=== PATIENT | male | born 1945 | race Caucasian/White ===

== ENCOUNTER 2025-02-15 13:28 | Inpatient (IN) | payer OTHER, SELFPAY ==
[2025-02-09 22:49] VITALS: BMI 22.0
[2025-02-09 22:50] VITALS: BP 184/109
[2025-02-09 22:54] LABS: Glucose - Point of Care 131 mg/dl (70-99)
[2025-02-09 23:00] VITALS: BP 179/108
--- NOTE | 2025-02-09 23:21 | ED.CVA ---
History of Present Illness
General
Chief Complaint: CVA/TIA Symptoms
Source: patient
Exam Limitations: altered mental status
Time Seen by Provider: 02/09/25 23:15
Nursing documentation reviewed up to this point in time: agreed with
Onset of Stroke Symptoms
Onset of symptoms known: Yes
Date of onset of symptoms: 02/09/25
Time of onset of symptoms: 22:30
Time pt last seen normal is known: Yes
Date last time pt seen normal: 02/09/25
History of Present Illness
History of Present Illness:
80-year-old male AF, on Coumadin was going to bed trouble speaking right-sided weakness EMS was called, symptoms improved, here he is a bit slow to respond slightly confused seems to be moving all extremities, no headache no fever, knows he is at
the hospital
Past History
Past History
ED Past Medical History: Arrthythmia
Social History
Tobacco: Non-smoker
Alcohol: None
Drug: None
Personal:
Living: with family
Employment: Retired
Review of Systems
Review of Systems
All Other Systems: Not applicable
Constitutional: Denies fever or fatigue
EENT: Reports no symptoms
Respiratory: Reports no symptoms
Cardiac: Reports no symptoms
Neurological: Reports weakness
Phy Exam
Physical Exam
Physical Exam:
Physical Exam
General: no apparent distress, not acutely ill
Neck: No tongue bite
Heart: Airway
Lungs: no acute respiratory distress. clear bilaterally
Abdomen: normal bowel sounds. not tender. no CVAT
Neuro: See NIH
Skin: no rash
Psychiatric: well kept. interactive and cooperative
Extremities: no ute
Scores
NIH Stroke Score
Level of Consciousness: 0 - Alert
LOC Questions: 0-Answers both correctly
LOC Commands: 0-Performs both correctly
Best Horizontal Gaze: 0-Normal
Visual Fritz: 0=Normal, no visual loss
Facial Palsy: 0=Normal, symmetrical
Motor - Right Arm: 0=No drift 10 seconds
Motor - Left Arm: 0=No drift 10 seconds
Motor - Right Le-No drift 5 seconds
Motor - Left Le-No drift 5 seconds
Limb Ataxia: 0-Absent
Sensation: 0-Normal
Best Language: 0-No aphasia
Dysarthria: 0-Normal
Extinction and Inattention: 1-Sensory inattention
NIH Total Score:: 1
Course
Orders/Labs/Results
Orders:
Orders
02/09/25 23:00
ECG [Electrocardiogram (*1)] Urgent
Reason for Study: TIA/Stroke
Cardiology Consult: Unknown
EKG- Treatment ONCE
02/09/25 23:19
Electrocardiogram (*1) Stat
Reason for Study: Other
Other Reason for Exam: neuro symptoms
Bedside Glucose- Treatment ONCE
Cardiac Monitoring- Treatment ONCE
EKG- Treatment ONCE
IV Insert/Care/Rem.- Treatment PRN
02/09/25 23:24
Complete Blood Count/With Diff Urgent
Comprehensive Metabolic Panel Urgent
Prothrombin Time Urgent
02/10/25 00:11
CT Head W/o Iv Contrast Urgent
Comment:
Reason For Exam: Slurred speech
02/10/25 01:22
Diltiazem HCl [Cardizem] 10 mg IV NOW STA
02/10/25 01:30
Diltiazem 125 mg/125 ml Nss [Cardizem] 125 mg in 125 ml IV PER PROTOCOL
Initial dose in mg/hr, then titrate:: 5
Titrate to keep:: Heart rate 80-100 bpm
Titrate by mg/hr:: 5 mg/hr
Frequency of titrations (minutes):: 15
Maximum dose in mg/hr:: 15
02/10/25 02:40
Admit/Transfer Patient As Directed
Co-Sign Provider:
Level of Care: Observation services
Assign to:: Telemetry
Physician / Group: Cholo
Diagnosis: TIA
Reason for Telemetry: CVA/TIA
Date to Stop Telemetry: 02/13/25
Time to Stop Telemetry: 11:00
Lactated Ringers [Lr] 1,000 ml IV BOLUS
02/10/25 02:41
PRN Pain Medication Management As Directed
May give lesser potent ordered pain med per pt: Yes
preference::
Protocol:: Medication orders for pain may be administered in a
manner that supports deferring to patient preference
when the pt is:
- Requesting an ordered lesser potent pain medication.
Least to most potent pain medications are defined
as: acetaminophen < NSAID < tramadol < opioids
(morphine, oxycodone, hydromorphone).
- Requesting a lesser dose of the same medication IF
ORDERED.
- Requesting a less intrusive route of administration
if both routes are prescribed by the provider (PO <
IV).
02/10/25 02:42
Code Status As Directed
Resuscitation Status: Full Code
02/13/25 11:00
DC Protocol for Telemetry ONCE
Abnormal Lab Results
02/09/25 02/09/25
22:51 23:24
RDW 14.8 H %
(11.5-14.5)
Abs Immat Gran (auto) 0.2 H 10^3/uL
(0-0.05)
Absolute Monos (auto) 0.9 H 10^3/uL
(0.1-0.6)
Immature Gran % 1.8 H %
(0-0.5)
Monocytes % 10.1 H %
(1.7-9.3)
PT 21.8 H Sec
(11.4-14.6)
Carbon Dioxide 20 L mmol/L
(22-30)
BUN 63 H mg/dl
(9-20)
Creatinine 2.9 H mg/dL
(0.7-1.3)
Glucose 145 H mg/dl
(70-99)
POC Glucose 131 H mg/dl
(70-99)
02/09/25 23:24
02/09/25 23:24
Vital Signs
Initial and Last Documented VS:
Initial Vital Signs
Pulse Resp BP Pulse Ox
93 18 184/109 99
02/09/25 22:50 02/09/25 22:50 02/09/25 22:50 02/09/25 22:50
Last Documented Vital Signs
Pulse Resp BP Pulse Ox
67 17 130/88 99
02/10/25 03:00 02/10/25 03:00 02/10/25 03:00 02/09/25 23:24
MDM/Problems Addressed
Differential Diagnosis Includes:
TIA CVA seizure with Case's paralysis UTI toxic metabolic
MDM/Problems Addressed:
Slurred speech and weakness which is improved
Chronic conditions affecting care: Arrhythmia
Acute Exacerbation and/or Progression of Chronic Illness: Arrhythmia
*Pulse Oximetry
SaO2: 99
Oxygen Mode of Delivery: Room air
Patient hypoxic: no
*Critical Care Note
Total Time (30-74mins, 75-104mins- exclusive of procedures): Not Applicable
Update Note
Update Note:
1:15 AM update patient appears well speech is clear muscle strength is intact discussed with son and at bedside he tried getting his words out earlier and weakness of the right side all of which is improved apparently having issues getting his
INR checked due to some insurance issues with [facility] and [facility]
Heart rate is in rapid A-fib now is hypertensive now we will start on Cardizem we will admit
ED Attending Note
-
Portions of this chart may have been created with voice recognition software.� Occasional wrong word or��sound alike� substitutions may have occurred due to the inherent limitations of voice recognition software.
Discharge Plan
Departure
Patient Disposition: Admit
Date of Disposition: 02/10/25
Time of Disposition: 01:23
Admit to: Telemetry
Presentation/result/management discussed w/ accepting MD/DO: Hospitalist
Patient with high blood pressure during this ER visit?: Yes
Covid-19: Not Applicable
Discharge Problem:
Brain TIA, Hypertensive urgency, Atrial fibrillation
Interventions
Interventions:
*Risk Screen - Suicide Last Done: 02/09/25 22:50
*General Assessment Last Done: 02/09/25 22:50
*Neglect/Abuse Screening Last Done: 02/09/25 22:50
*ED- Fall Risk Assessment Last Done: 02/09/25 22:50
*ED COVID-19 Vaccine History Last Done: 02/09/25 22:50
ED- Pulmonary Assessment Last Done: 02/09/25 23:13
ED- Neurological Assessment Last Done: 02/09/25 23:13
ED- Cardiac Assessment Last Done: 02/09/25 23:13
ED Swallowing Screen Last Done: 02/09/25 23:17
[2025-02-09 23:34] LABS: Hematocrit 39.8 % (39.0-52.0); Hemoglobin 13.2 g/dL (13.0-18.0); Mean Corp Hgb Conc. 33.2 g/dL (33.0-37.0); Mean Corpuscular Volume 82.4 fL (80.0-94.0); Nucleated Red Blood Cells % 0 % (-); Platelet Count 228 10^3/uL (130-400); Red Cell Dist. Width 14.8 % (11.5-14.5)
[2025-02-09 23:44] LABS: INR 1.84; PT 21.8 Sec (11.4-14.6)
[2025-02-10] VITALS (24 sets, daily range): BP systolic 88–180; BP diastolic 62–121; PULSE 110–115; BMI 21.5; BMI 20.6
[2025-02-10] LABS: ALT (SGPT) 23 U/L (0-50); AST (SGOT) 27 U/L (17-59); Albumin 4.4 g/dl (3.5-5.0); Alkaline Phosphatase 66 U/L (38-126); Blood Urea Nitrogen 63 mg/dl (9-20); Calcium 9.4 mg/dl (8.4-10.2); Carbon Dioxide 20 mmol/L (22-30); Chloride 106 mmol/L (98-107); Estimated Creatinine Clearance 20 ml/min; Glucose 145 mg/dl (70-99); Potassium 3.9 mmol/L (3.5-5.1); Sodium 137 mmol/L (135-145); Total Protein 7.2 g/dl (6.3-8.2); eGFR 20.94
[2025-02-10] MEDS: CARDIZEM 10 MG IV (01:42)
[2025-02-10] MEDS: CARDIZEM 125 IV (01:43)
--- NOTE | 2025-02-10 02:31 | HPS.HSE ---
Family Physician
-
Family Physician: Elias Mcmahon
Chief Complaint
-
TIA
History of Present Illness
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
symptoms today.
Apparently at around 8 PM the patient was getting up to go to bed. noticed that he had a facial droop. She also noticed that he had bilateral weakness of his upper extremities. He was unable to voice. He had aphasia with repeated
statements. Per family this lasted for about 30 minutes and by the time he arrived in the emergency department his symptoms had completely resolved.
He reported that he had been feeling unwell for a few days now. He has had some episodes of dizziness and lightheadedness. But he has not had any fevers or chills. He has not had any cough. He denies having palpitation. He denies any chest pain
nausea vomiting or diaphoresis. He denies any lower extremity swelling.
There was some concern for worsening kidney function and dehydration show is Jardiance was discontinued. He is currently in the middle of see new PMD and junior technical writer at [facility]. He reports compliance with his medications.
In the emergency department he was afebrile, blood pressure was initially 170/100 with a pulse in the 80s. They later noted that he was actually tachycardic to the 120s and atrial fibrillation. He is now on Coreg. Pulse rate ranging from the 80s
to the 110s.
ECG shows atrial fibrillation at a rate of 94 without any acute ischemic changes.
CBC was unremarkable
Electrolytes were normal. BUN and creatinine were 63 and 2.9. INR was 1.8
Medical History
Past Medical History
Past Medical History: Reports Arrhythmia, Cancer (History of renal tumor status post left nephrectomy), HTN, NIDDM and Renal Failure (Solitary kidney)
Past Surgical History: Reports Other (Left nephrectomy by laparotomy)
Social History
Tobacco: Non-smoker
Alcohol: Occasional
Drug: None
Personal:
Living: With Family
Employment: Retired
Family History
Family History: Not pertinent
Allergies / Home Medications
Allergies reflects when Allergies were last updated in [employer].
Home Medications with original date entered in Barcoding
Allergy/Medication List:
Allergies
Allergy/AdvReac Type Severity Reaction Status Date / Time
Penicillins Allergy Mild Unknown Verified 02/10/25 00:00
Home Medications
amlodipine 10 mg tablet 10 mg PO DAILY 02/10/25
atenolol 50 mg-chlorthalidone 25 mg tablet 1 tab PO DAILY 02/10/25
empagliflozin 25 mg tablet (Jardiance) 25 mg PO DAILY 02/10/25
enalapril maleate 20 mg PO HS 02/10/25
flecainide 100 mg tablet 100 mg PO BID 02/10/25
metformin 1,000 mg tablet 1,000 mg PO BID 02/10/25
omeprazole 20 mg tablet,delayed release 20 mg PO DAILY 02/10/25
timolol 1 dose BOTH EYES BID 02/10/25
warfarin 5 mg tablet 5 mg PO HS 02/10/25
Review of Systems
-
Constitutional: Reports No Symptoms
EENT: Reports No Symptoms
Respiratory: Reports No Symptoms
Cardiac: Reports No Symptoms
Abdomen/GI: Reports No Symptoms
: Reports No Symptoms
Musculoskeletal: Reports No Symptoms
Skin: Reports No Symptoms
Neurological: Reports Dizzy, Weakness and Other (Facial droop and aphasia)
Endocrine: Reports No Symptoms
Hematologic/Lymphatic: Reports No Symptoms
Psych: Reports No Symptoms
Physical Exam
Vital Signs
Vital Signs
Pulse Resp BP Pulse Ox
76 20 136/95 99
02/10/25 02:08 02/10/25 02:14 02/10/25 02:08 02/09/25 23:24
Physical Exam
General: Well Developed, Well Nourished and No Apparent Distress
HEENT: NormoCephalic, Moist mucous membranes and Atraumatic
Respiratory: Clear
Cardiac: S1/S2 and Irregular Rhythm; No Murmur or Rub
GI: Soft, Non Tender, Non Distended and Normal Bowel Sounds; No Organomegaly
Rectal: Deferred by Provider
Musculoskeletal: No Clubbing, No Cyanosis and No Edema
Skin: No Rash
Neuro: AO x 3, Nonfocal/grossly intact and Other (NIHSS equals 0); No Slurred Speech or Facial Droop
Hematologic/Lymphatic: No Lymphadenopathy
Psych: Calm
Laboratory Results
-
02/09/25 23:24
02/09/25 23:24
Laboratory Results
PT 21.8 Sec (11.4-14.6) H 02/09/25 23:24
INR 1.84 02/09/25 23:24
Total Bilirubin 0.6 mg/dl (0.2-1.3) 02/09/25 23:24
AST 27 U/L (17-59) 02/09/25 23:24
ALT 23 U/L (0-50) 02/09/25 23:24
Alkaline Phosphatase 66 U/L (38-126) 02/09/25 23:24
Data Reviewed
-
CT Scan: Report Reviewed by me
Medical Tests (Nuc Med, Echo, EKG etc): Image Personally Visualized and interpreted
Lab Data: Labs Reviewed by me
Old Records: Reviewed
Impression/Plan
-
IMPRESSION:
This is a 80-year-old with past medical history of's CKD unknown baseline creatinine, diabetes, atrial fibrillation on anticoagulation with warfarin hypertension presenting to the emergency department with episode aphasia, weakness and facial droop
that lasted for about 30 minutes and now resolved (NIHSS equals 0) and found to be in A-fib with RVR in the emergency department. Patient is chronically on anticoagulation for atrial fibrillation. Appears to have had some recent weakness
dehydration for which Jardiance was discontinued. He is currently rate controlled on diltiazem drip. No known history of congestive heart failure. No volume overload.
PLAN:
CVA TIA -possible CVA or TIA in the setting of atrial fibrillation with subtherapeutic anticoagulation
- admit to telemetry
�Neurochecks every 6
�MRI in a.m.
�Continue anticoagulation for now
�If MRI is positive then consult neuro
- echo
�Check lipid panel and A1c
A-fib RVR
�Patient takes warfarin 5 mg daily, repeat INR in a.m., adjust to goal INR greater than 2
�Continue flecainide and atenolol
�Maintain current rate of diltiazem, DC if rate persistently below 100
�IV fluids
- cardiology consult.
CKD -creatinine 2.9,
�Obtain records for recent creatinine
�Hold chlorthalidone, ACEI
�IV fluids
�Hold metformin
DM2
�Hold Jardiance
� Hold metformin
� Check A1c
� Sliding scale insulin
DVT prophylaxis�on warfarin
CODE STATUS�full code
[2025-02-10] MEDS: LR 1000 IV ×2 (03:17→06:25)
--- NOTE | 2025-02-10 05:26 | PTCARENOTE ---
Received pt from ED via stretcher into room 4211. Pt ambulated w/ standby assist and denies any dizziness. Gait unsteady and generalized weakness. Tele monitor applied, pt Afib. IV Cardizem gtt currently infusing at 10mg/hr. Neuro WNL and [facility]. NIH
performed along w/ a 2nd RN Hattie w/ a result of zero. Patient denies any pain or discomfort. Aware of POC. Call beaver within reach, fall risk precautions maintained. Pt oriented to room.
[2025-02-10 05:42] LABS: INR 1.96; PT 22.8 Sec (11.4-14.6)
[2025-02-10 05:43] LABS: APTT 35.0 Sec (23.4-35.0)
[2025-02-10 05:45] LABS: Blood Urea Nitrogen 55 mg/dl (9-20); Calcium 9.5 mg/dl (8.4-10.2); Carbon Dioxide 21 mmol/L (22-30); Chloride 107 mmol/L (98-107); Estimated Creatinine Clearance 22 ml/min; Glucose 120 mg/dl (70-99); HDL Cholesterol 34 mg/dl; LDL Cholesterol, Calculated 28 mg/dl; Potassium 4.3 mmol/L (3.5-5.1); Sodium 138 mmol/L (135-145); Very Low Density Lipoprotein 24 mg/dl (0-30); eGFR 23.87
[2025-02-10 06:18] LABS: Urine Character Clear (Clear)
[2025-02-10 06:39] LABS: Urine Red Blood Cell 0-2 /HPF (0-2); Urine Squamous Cell None seen /LPF (Few); Urine White Cell None Seen /HPF (0-5)
[2025-02-10] MEDS: TAMBOCOR 100 MG PO (07:58)
[2025-02-10] MEDS: NORVASC 10 MG PO (07:58)
[2025-02-10] MEDS: PROTONIX 40 MG PO (07:58)
[2025-02-10] MEDS: TIMOPTIC 0.5% OPHTHALMIC SOLUTION 1 DROP BOTH EYES ×2 (07:59→20:00)
[2025-02-10] MEDS: COUMADIN 7.5 MG PO (07:59)
[2025-02-10 08:05] LABS: Glucose - Point of Care 131 mg/dl (70-99)
[2025-02-10 08:50] LABS: Glycohemoglobin (HgbA1c) 6.0 % (4.0-5.6)
--- NOTE | 2025-02-10 09:40 | PTCARENOTE ---
Pt w/ positive orthos. BP 88/62 pulse 115 when standing; BP 121/86 pulse 115 when sitting; BP 135/89 pulse 110 when supine. Pt reports feeling slightly dizzy when standing. Dr. Gandhi and Dr. Germain made aware. Pt w/ NIH 0. Plan of care reviewed w/
pt and verbalizes understanding. Currently in bed; call beaver w/in reach.
--- NOTE | 2025-02-10 09:54 | W.PN.HOSP.TC ---
Addendum entered and electronically signed by Teressa Germain MD 02/10/25 10:55:
called back to provide last SCr level from 12/2024 which was at 2.25.
SCr from Aug 2024 was at 1.81 per
Addendum entered and electronically signed by Treessa Germain MD 02/10/25 10:37:
d/w Card, stop further Cardizem drip.
Would consider starting Toprol in place of his [employer] Atenolol.
Can check carotid US in setting of resolved apahsia
?Coumadin to [facility] by card
Original Note:
Today's Communication/Plan
-
see A/P
Assessment / Plan
Assessment / Plan
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
weakness and facial droop that lasted for about 30 minutes and now resolved (NIHSS equals 0).
He was found to be in A-fib with RVR in the emergency department. Patient is chronically on anticoagulation with Coumadin for atrial fibrillation.
He appeared to have had some recent weakness from dehydration and Jardiance was discontinued.
He is currently in the middle of see new PMD and client service administrator at [facility]. He reports compliance with his medications.
A/P:
# Resolved neurologic deficit, 2/2 CVA vs TIA in setting of atrial fibrillation with subtherapeutic anticoagulation
Cont monitoring manager
Neurochecks every 6
CT head No acute intracranial abnormalities appreciated.
Check MRI brain
Continue anticoagulation Coumadin for now, daily INR
LDL 28, A1c 6%
Noted positive orthostatic hypotension
PT eval
# Persistent A-fib with RVR on admission
Patient takes warfarin 5 mg daily, cont
check daily INR, goal 2-3
Continue flecainide and atenolol
pt was started with Cardizem drip, cont for now
IV fluids
Check echo
Cardiology consulted.
# CKD, unclear baseline
creatinine on admission at 2.9 -> 2.6
Obtain records for recent creatinine level
Hold chlorthalidone, ACEI
IV fluids
Hold metformin
# NIDDM
Hold Jardiance
Hold metformin
A1c 6%
Sliding scale insulin coverage
DVT prophylaxis�on warfarin
CODE STATUS�full code
updated on the phone
total time spent 51 min
Anticipated Discharge: > 48 hours
Subjective/Interval History
-
Date of Service: February 10, 2025
Objective Data
-
Labs:
Laboratory Results
02/09/25 02/10/25
23:24 05:11
WBC 8.8
Hgb 13.2
Hct 39.8
Plt Count 228
PT 21.8 H 22.8 H
INR 1.84 1.96
APTT 35.0
Sodium 137 138
Potassium 3.9 4.3
Chloride 106 107
Carbon Dioxide 20 L 21 L
BUN 63 H 55 H
Creatinine 2.9 H 2.6 H
Glucose 145 H 120 H
Calcium 9.4 9.5
Total Bilirubin 0.6
AST 27
ALT 23
Alkaline Phosphatase 66
Vital Signs:
Vital Signs
Temp Pulse Resp BP Pulse Ox
36.6 C 96 20 145/97 99
02/10/25 06:59 02/10/25 09:30 02/10/25 06:59 02/10/25 09:30 02/10/25 06:59
I&O
02/09/25 02/10/25 02/11/25
06:59 06:59 06:59
Intake Total 240 / 240 400 / 400
Output Total 700 / 700 350 / 350
Balance -460 / -460 50 / 50
Review of Systems
-
History Source: Patient
All other systems: Reviewed and negative
Neuro: Reports Other (resolved aphasia ); Denies Weakness
Physical Exam
-
General: Well Developed, Well Nourished, No Apparent Distress, Comfortable and Conversant; Negative Respiratory Distress
HEENT: Normocephalic, Atraumatic, Nose Appears Normal and Ears Appear Normal; Negative Oxygen
Respiratory: Clear to Auscultation and Non Labored Respirations; Negative Accessory Resp Muscle Use
Cardiac: S1/S2 and Irregular Rhythm
GI: Soft, Nontender, Nondistended and Normal Bowel Sounds
Skin: Warm and Dry
Neuro: Awake, Alert, Oriented and AO x 3
Psych: Calm and Intact Judgement/Insight
Data Reviewed
-
CT Scan: Report Reviewed by me
Labs: Labs Reviewed by me
--- NOTE | 2025-02-10 10:06 | CON.CAR ---
Addendum entered and electronically signed by Jaylon Gandhi MD 02/10/25 10:43:
CKD/CAT
- Acute on chronic with creatinine 2.9 on admission down to 2.6. Unclear what patient's baseline is.
- Note patient has solitary kidney. Previous left nephrectomy
- Treatment directed by hospitalist
.
A-fib
- Issues as noted.
- Patient was on flecainide prior to admission now with recurrent A-fib and CAT.
- Stop flecainide
Original Note:
Consultation
Consultation Request
Date/Time Consultation Requested: 02/10/2025 8 AM
Date/Time Consultation Performed: 02/06/2025 at 9:30 AM
Requesting Provider: Hospitalist
Performing Provider: Dr. Gandhi
Reason for Consultation: A-fib
Medical History
-
History of Present Illness:
.
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
.
80-year-old male with a history of atrial fibrillation is maintained on anticoagulation with Coumadin. Presented with facial droop, upper extremity weakness and aphasia. Symptoms resolved. Initial INR 1.8.
Patient currently comfortable. Seems as if he is having some issues with his memory this morning as he is trying to recall issues of his history and former providers name unclear if this is baseline. Patient thinks he is having a little more
trouble today than usual. No complaints of weakness. No palpitations or heart racing no chest pain or shortness of breath denies having a history of coronary artery disease.
.
Patient was placed on some IV Cardizem during this hospitalization rates are in the 50s while asleep so Cardizem was discontinued. Currently receiving IV fluid at 80 mL/h
Patient had some low blood pressure readings. For this reason I repeated his blood pressure at the bedside which was 150/94. On the blood pressure history at the bedside he had systolic blood pressure is 88 and 90 I reviewed this with nursing
staff who stated he had orthostatic hypotension and those were standing blood pressures.
Past medical history
Atrial fibrillation
Anticoagulation with Coumadin
Solitary kidney. Left nephrectomy for renal tumor
Hypertension
Diabetes
Head CT 02/06/2025 no acute intracranial abnormalities mild atrophy and mild chronic small vessel change
Past Medical History
Past Medical History: Other (See HPI)
Social History
Tobacco: Non-Smoker
Personal:
Living: With Family
Family History
Family History: Reviewed & Not Pertinent
Allergies / Home Medications
Allergy/AdvReac Type Severity Reaction Status Date / Time
Penicillins Allergy Mild Unknown Verified 02/10/25 00:00
�Medication �Instructions �Recorded �Confirmed �Type
amlodipine 10 mg tablet 10 mg PO DAILY 02/10/25 02/10/25 History
atenolol 50 mg-chlorthalidone 25 1 tab PO DAILY 02/10/25 02/10/25 History
mg tablet
empagliflozin 25 mg tablet 25 mg PO DAILY 02/10/25 02/10/25 History
(Jardiance)
enalapril maleate 20 mg PO HS 02/10/25 02/10/25 History
flecainide 100 mg tablet 100 mg PO BID 02/10/25 02/10/25 History
metformin 1,000 mg tablet 1,000 mg PO BID 02/10/25 02/10/25 History
omeprazole 20 mg tablet,delayed 20 mg PO DAILY 02/10/25 02/10/25 History
release
timolol 1 dose BOTH EYES BID 02/10/25 02/10/25 History
warfarin 5 mg tablet 5 mg PO HS 02/10/25 02/10/25 History
Review of Systems
-
All other systems: Negative unless noted
Physical Exam
Vital Signs
Temp Pulse Resp BP Pulse Ox
97.9 F 96 20 145/97 99
02/10/25 06:59 02/10/25 09:30 02/10/25 06:59 02/10/25 09:30 02/10/25 06:59
Lab Results
02/09/25 23:24
02/10/25 05:11
Lxe-T-Xhsohqinzrx Pept [id number] pg/ml 02/10/25 05:11
Physical Exam
General: Well Developed, Well Nourished and Other (Awake alert cooperative)
HEENT: Normocephalic, Anicteric and Other (Extraocular movements are intact pupils appear equal external ear normal exam unremarkable. Face appears symmetrical)
Respiratory: Other (Clear no wheezes rales or rhonchi)
Cardiac: Regular Rhythm
GI: Soft, Non Tender and Normal Bowel Sounds
Musculoskeletal: No Clubbing, No Cyanosis and No Edema
Neuro: Awake, Alert and Oriented
Psych: Calm
Impression / Plan
-
80-year-old with A-fib maintained on Coumadin who presented with neurologic symptoms. Patient in A-fib on presentation and INR 1.8. 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
.
CVA versus TIA.
- Transient neurologic symptoms including aphasia facial droop and weakness which have resolved
- CT without acute abnormality
-Await MRI
-Imaging of carotids would recommend carotid ultrasound if neck is not included an MRi
- Patient with A-fib and had subtherapeutic INR 1.8 on presentation.
- Await additional neuro input
- INR 1.96 and trending upward can continue to dose Coumadin to keep in therapeutic range. Alternatively we could consider changing to a NOAC although options are limited with renal insufficiency. Would have to be Eliquis at 2.5 twice daily dose.
If patient remains on Coumadin then could plan for weekly INRs to be sure that he is kept in normal range.
- Echo
.
A-fib.
- History of A-fib prior to presentation
- Anticoagulation issues as above
- Heart rates currently reasonably controlled apparently were elevated earlier this admission. Patient had been on flecainide and atenolol
- Can monitor rates and resume beta-adama.
.
Orthostatic hypotension.
- Systolic blood pressure 88-90 standing this morning. There may have been some residual Cardizem effect.
- Now in bed blood pressure 150/94.
- Patient receiving additional IV fluid
- With recent CVA versus TIA and orthostatic symptoms we will need to try to avoid hypotension.
- Amlodipine held as we are assessing pressures
Data Reviewed
-
EKG: Report Reviewed by me
Radiology: Report Reviewed by me
CT Scan: Report Reviewed by me
Medical Tests (Nuc Med, Echo etc): Report Reviewed by me
Labs: Labs Reviewed by me
[2025-02-10 12:38] LABS: Glucose - Point of Care 110 mg/dl (70-99)
--- NOTE | 2025-02-10 12:43 | CM ---
Reviewed chart. Met with Mr. Garcia to review discharge plans. He states prior to admission he resides with his spouse in a two story home wwoth one step to enter. He states he has a full flight of steps to get to bedroom/full bathroom. He
states he has a powder room on the first floor. He states prior to admission he ambulates with a single point cane. He recently obtain a single point cane. He states he has a single point cane and no other DME in the home. He states he has a
prescription plan. Will need to see his current functional level to see if he will have any skilled care needs. The discharge plan is to to return home with his spouse when medically stable.
--- NOTE | 2025-02-10 12:43 | PTCARENOTE ---
Pt w/ occasional forgetfulness but able to be reoriented. E.g. pt forgetting to use call beaver to use bathroom and attempting to pull off tele monitor. Pt able to be re-oriented. Educated pt on importance on using call beaver for assistance. Pt
verbalizes understanding. Bed alarm activated for pt safety. Currently in bed; call beaver w/in reach.
--- NOTE | 2025-02-10 16:01 | PTCARENOTE ---
Pt transferred to room 406-01. Report given to Lauren KLINE. Belongings collected and sent w/ pt.
[2025-02-10 17:20] LABS: Glucose - Point of Care 122 mg/dl (70-99)
[2025-02-10 21:27] LABS: Glucose - Point of Care 145 mg/dl (70-99)
[2025-02-10] MEDS: LOPRESSOR 2.5 MG IV (22:17)
--- NOTE | 2025-02-10 22:34 | W.PN.UPDATE ---
Update Note
Progress Note Update
HR 100-140. Bp 138/78 manual, patient refusing PO medications.
Patient HR now in 140's irregular BP 138/84, will order Metoprolol 2.5mg IVx1
HR 100-115 at present
Patient constantly trying to get out of bed, will place him in Claudia chair, Ox2, forgetful, voiding without difficulty, denies any pain.
one hour later patient still trying to get out off Claudia chair, risking himself, agitated now, unable to direct him.
4 points placed
one hour later patient continues to get out of restraints, frustrated, bitting restraints off.
will order Zyprexa 2.5mg IM x1 now.
[2025-02-11] MEDS: ZYPREXA 2.5 MG IM (01:57)
[2025-02-11 03:44] VITALS: BP 132/78
[2025-02-11 07:32] VITALS: BP 135/97
[2025-02-11 07:41] LABS: Glucose - Point of Care 109 mg/dl (70-99)
[2025-02-11 07:49] LABS: Hematocrit 38.2 % (39.0-52.0); Hemoglobin 12.7 g/dL (13.0-18.0); Mean Corp Hgb Conc. 33.2 g/dL (33.0-37.0); Mean Corpuscular Volume 82.0 fL (80.0-94.0); Platelet Count 201 10^3/uL (130-400); Red Cell Dist. Width 14.5 % (11.5-14.5)
[2025-02-11 08:02] LABS: INR 2.38; PT 26.0 Sec (11.4-14.6)
[2025-02-11 08:27] LABS: Blood Urea Nitrogen 39 mg/dl (9-20); Calcium 9.6 mg/dl (8.4-10.2); Carbon Dioxide 24 mmol/L (22-30); Chloride 106 mmol/L (98-107); Estimated Creatinine Clearance 28 ml/min; Glucose 107 mg/dl (70-99); Magnesium 1.3 mg/dl (1.6-2.3); Potassium 3.8 mmol/L (3.5-5.1); Sodium 141 mmol/L (135-145); eGFR 32.71
[2025-02-11] MEDS: TIMOPTIC 0.5% OPHTHALMIC SOLUTION 1 DROP BOTH EYES (08:55)
[2025-02-11] MEDS: PROTONIX 40 MG PO (08:57)
--- NOTE | 2025-02-11 09:05 | W.PN.HOSP.TC ---
Today's Communication/Plan
-
see A/P
Assessment / Plan
Assessment / Plan
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
weakness and facial droop that lasted for about 30 minutes and now resolved (NIHSS equals 0).
He was found to be in A-fib with RVR in the emergency department. Patient is chronically on anticoagulation with Coumadin for atrial fibrillation.
He appeared to have had some recent weakness from dehydration and Jardiance was discontinued.
He is currently in the middle of see new PMD and outreach clinician at [facility]. He reports compliance with his medications.
A/P:
# Resolved neurologic deficit, 2/2 CVA vs TIA in setting of atrial fibrillation with subtherapeutic anticoagulation on admission
Cont monitor technician
Neurochecks every [address] head No acute intracranial abnormalities appreciated.
Pending MRI brain
Neuro CS
Of note, LDL 28, A1c 6%
Noted positive orthostatic hypotension
PT eval
# acute metabolic encephalopathy/ Agitation overnight 02/11 with behavioral disturbance
pt was placed on restraint for aggressive behavior
No formal diagnosis of dementia per , however has noticed that pt has become more forgetful
Check repeat CT head for change in MS, Ativan [address] for agitation
Will make NPO (with IVF) today since giving Ativan
Also pending MRI brain
Neuro CS
# Persistent A-fib with RVR
Cont DAYCARE PROVIDER warfarin 5 mg daily
daily INR, goal 2-3
s/p Cardizem drip
Off DAYCARE PROVIDER flecainide and atenolol per card
Echo unrevealing: Normal biventricular size and systolic function without regional wall motion abnormality. Estimated LVEF 50-55%. No significant valve disease. No prior study available for comparison.
Cardiology on board
# CKD, unclear baseline
creatinine on admission at 2.9 -> ... -> 2.0
Per , last SCr from December 2024 was at 2.25; SCr from Aug 2024 was at 1.81
Hold DAYCARE PROVIDER chlorthalidone, ACEI
Hold DAYCARE PROVIDER metformin
Cont gentle IV fluids
# NIDDM
Hold Jardiance
Hold metformin
A1c 6%
Sliding scale insulin coverage
# Hypomagnesemia
replete IV
DVT prophylaxis�on warfarin
CODE STATUS�full code
DW RN
DW Card
DW Neuro
updated on the phone
total time spent 51 min
Anticipated Discharge: > 48 hours
Subjective/Interval History
-
Date of Service: February 11, 2025
Objective Data
-
Labs:
Laboratory Results
02/11/25
07:18
WBC 9.0
Hgb 12.7 L
Hct 38.2 L
Plt Count 201
PT 26.0 H
INR 2.38
Sodium 141
Potassium 3.8
Chloride 106
Carbon Dioxide 24
BUN 39 H
Creatinine 2.0 H
Glucose 107 H
Calcium 9.6
Vital Signs:
Vital Signs
Temp Pulse Resp BP Pulse Ox
36.4 C 123 20 135/97 99
02/11/25 07:32 02/11/25 07:32 02/11/25 07:32 02/11/25 07:32 02/11/25 08:46
I&O
02/10/25 02/11/25 02/12/25
06:59 06:59 06:59
Intake Total 240 / 240 400 / 400
Output Total 700 / 700 350 / 350
Balance -460 / -460 50 / 50
Review of Systems
-
Unable to obtain full review of systems at this time due to: Acuity
Physical Exam
-
General: Well Developed, Well Nourished, No Apparent Distress, Comfortable and Conversant; Negative Respiratory Distress
HEENT: Normocephalic, Atraumatic, Nose Appears Normal and Ears Appear Normal; Negative Oxygen
Respiratory: Clear to Auscultation and Non Labored Respirations; Negative Accessory Resp Muscle Use
Cardiac: S1/S2, Irregular Rhythm and Tachycardic
GI: Soft, Nontender, Nondistended and Normal Bowel Sounds
Skin: Warm and Dry
Neuro: Awake
Psych: Calm; Negative Intact Judgement/Insight
Data Reviewed
-
CT Scan: Report Reviewed by me
Labs: Labs Reviewed by me
--- NOTE | 2025-02-11 09:06 | CON.NEURO4 ---
Addendum entered and electronically signed by Ben Faye MD 02/11/25 12:28:
Correction: Patient was not alert and instead was delirious. Speech was intact. He does not follow requests
Otherwise, exam is as listed below.
Impressions/recommendations should read:
Patient with onset of aphasia and right-sided weakness.
This most likely represents underlying dementia with subacute worsening
Differential diagnosis includes acute onset stroke based on weakness
Check CT a head and neck for stenoses
Check MRI of brain
Continue patient's usual anticoagulation
Treat orthostasis
Provide supportive care
Will follow peripherally
Addendum entered and electronically signed by Ben Faye MD 02/11/25 12:16:
Studies reviewed.
I have personally examined the patient. I reviewed and agree with the [facility] PROGRAM COORDINATOR's Note.
My addenda:
Awake, alert, interactive. No acute distress.
Speech intact.
Follows 2-step requests w/o difficulty. No tremor.
Extra-ocular movements grossly intact.
Facial movements full and symmetric. Hearing intact to normal conversational volume.
Normal UE movements bilaterally.
Neck: full ROM.
Chest: no dyspnea
Heart: no JVD
Ext: (-) Clubbing, (-) Cyanosis, (-) Edema
IMPRESSIONS/RECOMMENDATIONS:
Abrupt onset of aphasia with right-sided weakness and visual change of longstanding nature
Most likely representing an combination with his left homonymous quadrantanopsia, and abnormal CT of head, a multi location ischemic stroke
Check MRI of brain
Check CTA head and neck for stenoses
Would continue the patient on usual anticoagulation
Work to ensure that the patient's orthostasis is adequately treated by both checking orthostatic blood pressures and providing additional therapies including abdominal binder and encouraging water intake
Goal of normotension although this might be difficult in a patient with atrial fibrillation and orthostasis
D/W patient / with family by phone
All questions answered.
Will continue to follow pending results.
Original Note:
Documented by User: Ayleen Quinn NP 02/11/25 11:02
Consultation - Neurology 4
-
CONSULTING PHYSICIAN: Ben Faye MD
REFERRING PHYSICIAN: Hospitalists/Dr. Faye
DICTATED BY: RUIZ Nix
DATE/TIME OF REQUEST: 02/11/25
DATE/TIME OF CONSULTATION: 02/11/25
Reason for Consultation: Agitation, change in mental status
History of Present Illness:
This is an 80-year-old male who has presented to the hospital on 02/09/25 with report of aphasia and right-sided weakness. Patient is unable/unwilling to participate in much conversation, most of this information is obtained from medical records.
Two nights ago (02/09/25), patient got up to go get ready for bed when his noted that his right face appeared droopy, he was weak bilaterally, and he was unable to get his words out. On arrival in the ER, symptoms had resolved, lasting about 30
minutes in total. NIHSS was 1 for inattention. He is taking Coumadin for Afib, INR was subtherapeutic at 1.84. He was in Afib with RVR on admission. CT head was obtained and is negative for any acute abnormalities. He was not a candidate for TNK/IAT
due to resolving symptoms, NIHSS <6. Overnight last night (02/10/25), patient did not sleep much and became significant agitated towards staff and required zyprexa. He does not have any known history of dementia but reportedly has been having short
term memory issues. Patient currently is selectively conversant; agitated comments and aggressive behavior. Unable to obtain a complete review of systems.
Past Medical History: Afib (Coumadin), solitary kidney, HTN, orthostatic hypotension, NIDDM, GERD
Surgical History: Left nephrectomy for renal tumor
Family History: Reviewed and noncontributory.
Social History: Occasional alcohol. Denies tobacco and illicit drug use.
Allergies: Penicillins.
Home Medications: See below.
Review of Symptoms:
�Per the HPI.�All systems are reviewed negative except above.
Physical Exam:
The patient is afebrile, abdomen is nondistended, breathing is unlabored, skin is warm and dry, no edema.
NIH Stroke Scale:
I performed the NIH stroke scale on the patient on 02/11/25 at 0915. The patient scored 3 points on the NIH stroke scale assessment, which were assigned as follows: See below. NIHSS is very challenging to assess accurately due to agitation/lack of
cooperation.
Neurologic Examination:
The patient is fluctuating between being alert and being obtunded. Agitated/combative. He opens eyes to loud voice. He is oriented to place, does not provide answers to further orientation questions. There is no apparent aphasia or dysarthria. On
cranial nerve assessment, pupils are 3 mm bilateral, round and reactive to light and accommodation. INA visual fritz, tracks in all directions. There is no apparent facial asymmetry. Hearing is intact bilaterally to normal conversation volume.
Tongue palate and uvula are midline. Motor strengths are 5/5 bilateral upper and lower extremities on medical research [place] scale. INA drift. There is no involuntary movement noted. Deep tendon reflexes are 2+ bilateral upper and lower
extremities and Babinski is absent bilaterally. INA sensation, double simultaneous, and coordination.
Lab Results: See below.
Neuro Imaging:
1. CT Head 02/10/25: No acute intracranial abnormalities appreciated. Mild atrophy and mild chronic small vessel change.
2. Carotid Ultrasound 02/10/25: Eccentric calcified plaque within the bulb. Any stenosis is less than 50% on velocity criteria. Left carotid: Minimal noncalcified plaque within the bulb and proximal ICA. Any stenosis is less than 50% based upon
velocity criteria. Antegrade flow within the vertebral arteries.
Differentials for the patient's presentation include:
1. Transient aphasia and right facial drooping. Etiology of symptoms is possibly orthostatic hypotension, TIA, or ischemic stroke.
2. Possible underlying memory impairment.
3. Orthostatic hypotension, profound drop in SBP on testing yesterday.
Patient has the following risk factors for their symptoms: Afib with RVR, subtherapeutic INR, HTN, age
IV Tenecteplase/IAT candidacy: He was not a candidate for TNK/IAT due to resolving symptoms, NIHSS <6.
Recommendations:
-MRI brain noncontrast pending, unable to cooperate currently.
-Continue warfarin, INR goal 2-3.
-Goal normotension.
-Abdominal binder when OOB, increase fluid intake, slow position changes for orthostasis.
-Goal normoglycemia, hbA1c is 6.0.
-LDL goal <70. LDL is 28. No role for statin therapy currently as LDL is significantly below goal.
-NIHSS and neurological checks per unit guidelines.
-Provide patient/family with a stroke education packet.
-PT/OT/ST evaluations.
-Outpatient neuropsychological testing.
Discussed patient care with: Dr. Faye, the patient
Vital Signs and Labs
-
Vital Signs and Labs:
Vital Signs
Temp Pulse Resp BP Pulse Ox
97.6 F 123 20 135/97 99
02/11/25 07:32 02/11/25 07:32 02/11/25 07:32 02/11/25 07:32 02/11/25 08:46
Lab Results
02/11/25 07:18
02/11/25 07:18
PT 26.0 Sec (11.4-14.6) H 02/11/25 07:18
INR 2.38 02/11/25 07:18
APTT 35.0 Sec (23.4-35.0) 02/10/25 05:11
Sodium 141 mmol/L (135-145) 02/11/25 07:18
Potassium 3.8 mmol/L (3.5-5.1) 02/11/25 07:18
BUN 39 mg/dl (9-20) H 02/11/25 07:18
Glucose 107 mg/dl (70-99) H 02/11/25 07:18
Calcium 9.6 mg/dl (8.4-10.2) 02/11/25 07:18
Djx-J-Vfdraiyoaoe Pept 56374 pg/ml 02/10/25 05:11
LDL Cholesterol, Calc 28 mg/dl 02/10/25 05:11
Medications
-
Active Medications
Generic Name Dose Route Start Last Admin
Trade Name Freq PRN Reason Stop Dose Admin
Acetaminophen 650 mg 02/10/25 04:24
Acetaminophen 325 Mg Tablet PO 03/10/25 04:23
Q4HPRN PRN
mild pain/MOR[place]AND/temp> 100.4F
Bisacodyl 10 mg 02/10/25 04:24
Bisacodyl 10 Mg Rectal Suppository RECTAL 03/10/25 04:23
[id number] PRN
constipation
Dextrose 12.5 grams 02/10/25 05:00
Dextrose 50% (0.5 Grams/Ml) 50 Ml Syringe IV 03/10/25 04:59
[id number] PRN
hypoglycemia
Protocol
Glucagon 1 mg 02/10/25 05:00
Glucagon 1 Mg Vial IM 03/10/25 04:59
PRN PRN
hypoglycemia - no IV access
Protocol
Magnesium Sulfate 2 gram in 50 mls @ 25 mls/hr 02/11/25 09:05
Magnesium Sulfate IV 02/11/25 11:04
NOW STA
Insulin Aspart 0 units 02/10/25 07:30 02/11/25 08:55
Insulin Aspart Low Resistance 300 Units/3 Ml Pen.Injctr SC 03/10/25 07:29 Not Given
AC MARCOS
Protocol
Lorazepam 2 mg 02/11/25 09:11
Lorazepam 2 Mg/Ml Vial IV 02/11/25 09:12
ONCE ONE
Pantoprazole Sodium 40 mg 02/10/25 08:00 02/11/25 08:57
Pantoprazole 40 Mg Delayed Release Tablet PO 03/10/25 07:59 40 mg
DAILY MARCOS Administration
Polyethylene Glycol 17 grams 02/10/25 04:24
Polyethylene Glycol Powder 17 Grams Packet PO 03/10/25 04:23
DAILYPRN PRN
constipation
Senna/Docusate Sodium 1 tablet 02/10/25 04:24
Docusate W/Senna (Yanna-Colace) Tablet PO 03/10/25 04:23
BIDPRN PRN
constipation
Sodium Chloride 0 flush 02/10/25 05:00
Sodium Chloride 0.9% (Flush) Syringe IV 03/10/25 04:59
PER PROTOCOL MARCOS
Timolol Maleate 1 drop 02/10/25 08:00 02/11/25 08:55
Timolol 0.5% (Ophthalmic Solution) Bottle BOTH EYES 03/10/25 07:59 1 drop
BID MARCOS Administration
Warfarin Sodium 5 mg 02/11/25 18:00
Warfarin 5 Mg Tablet PO 02/16/25 17:59
QPM MARCOS
Home Medications
�Medication �Instructions �Recorded
amlodipine 10 mg tablet 10 mg PO DAILY Blood Pressure 02/10/25
atenolol 50 mg-chlorthalidone 25 1 tab PO DAILY Blood Pressure 02/10/25
mg tablet
empagliflozin 25 mg tablet 25 mg PO DAILY Diabetes 02/10/25
(Jardiance)
enalapril maleate 20 mg PO HS Blood Pressure 02/10/25
flecainide 100 mg tablet 100 mg PO BID Arrhythmia 02/10/25
metformin 1,000 mg tablet 1,000 mg PO BID Diabetes 02/10/25
omeprazole 20 mg tablet,delayed 20 mg PO DAILY Gastrointestinal 02/10/25
release Issue
timolol 1 dose BOTH EYES BID Eye Condition 02/10/25
warfarin 5 mg tablet 5 mg PO HS Blood Clot Prevention/Tx 02/10/25
NIH Stroke Score
Subsequent NIH Scale
Date of Subsequent NIH Scale: 02/11/25
Time of Subsequent NIH Scale: 09:15
NIH Stroke Score
Level of Consciousness: 1 - Arousable
LOC Questions: 2-Neither correct
LOC Commands: 0-Performs both correctly
Best Horizontal Gaze: 0-Normal
Visual Fritz: 0=Normal, no visual loss
Facial Palsy: 0=Normal, symmetrical
Motor - Right Arm: UN=Amputation/jointfusion
Motor - Left Arm: UN=Amputation/jointfusion
Motor - Right Leg: UN-Amputation/jointfusion
Motor - Left Leg: UN-Amputation/jointfusion
Limb Ataxia: UN-Amputation/jointfusion
Sensation: 0-Normal
Best Language: 0-No aphasia
Dysarthria: 0-Normal
Extinction and Inattention: 0-No abnormality
NIH Total Score:: 3
Modified Paisley (mRS) Score
Modified [place] Scale (mRS): No significant disability. Able to carry out usual activities.
Score: 1

Documented by User: Ben Faye MD 02/11/25 12:10
NIH Stroke Score
NIH Stroke Score
NIH Total Score:: 3
Modified Yin (mRS) Score
Score: 1
--- NOTE | 2025-02-11 09:09 | PTCARENOTE ---
Pt awake, alert for brief periods; agitated/restless/combative when awake. Refuses to cooperate with NIHSS assessment; attempts to hit staff; stated 'get out of here!'. Pt with ? left facial droop. Dr. Germain and Dr. Faye aware; up to see pt. Will
continue to monitor.
[2025-02-11] MEDS: THIAMINE INJECTION 100 MG IV (09:21)
[2025-02-11] MEDS: MAGNESIUM SULFATE 50 IV (09:25)
--- NOTE | 2025-02-11 09:31 | W.PN.CD ---
Addendum entered and electronically signed by Chen Antonio MD 02/11/25 10:15:
I saw and examined the patient.
The [facility]'s note was reviewed and I agree with the note.
Comment: He is agitated and not answering questions for me. irreg irreg lungs cta, restless in the bed
Echo normal 02/10/25
tele afib to afib with rvr correlating to agitation
Overall, will need to treat the behavioral disturbance, given history of OH, would not anjel mildly elevated rates with IV agents, as want to avoid hypotension with possible acute CVA
INR therapuetic now, DOACs may be a good consideration depending on mental status, renal function and cost.
d/w Dr Germain
will follow
Original Note:
Today's Communication / Plan
-
Continue current medical therapy
His agitation will continue to drive his heart rate above goal
MRI per primary service
Impression / Plan
-
I/P: 80M with atrial fibrillation (on warfarin) who presented with neurologic symptoms concerning for CVA versus TIA. INR subtherapeutic.
Primary toolmaker helper: Adam physician unknown
CVA versus TIA
-Change in mental status
-Transient neurologic symptoms including aphasia facial droop and weakness which have resolved
-CT without acute abnormality
-MRI today
-Imaging of carotids would recommended carotid ultrasound if neck is not included an MRI
-INR subtherapeutic on admission, INR 1.8, consider NOAC, will be challenging with degree of renal insufficiency
Atrial fibrillation, type unknown
-Rates above goal, but he is agitated
-Oral Anticoagulation: Continue warfarin, he presented subtherapeutic, as above
-[id number]: score at least 5 (age 75 or more, HTN, prior Stroke/TIA)
-Continue beta adama
Hypertension with orthostatic hypotension
-Currently restrained
-Hold amlodipine
-Patient receiving additional IV fluid
- With recent CVA versus TIA and orthostatic symptoms we will need to try to avoid hypotension.
CAT on CKD
- Slowly improving, baseline unknown, this will make NOAC decision challenging
SUBJECTIVE:
He denies chest pain and dizziness. He is currently oriented to himself.
Physical Exam
Vital Signs/Labs
Vital Signs
Temp Pulse Resp BP Pulse Ox
97.6 F 123 20 135/97 99
02/11/25 07:32 02/11/25 07:32 02/11/25 07:32 02/11/25 07:32 02/11/25 08:46
02/10/25 02/11/25 02/12/25
06:59 06:59 06:59
Actual Weight 71.7 kg 68.946 kg
02/11/25 07:18
02/11/25 07:18
PT 26.0 Sec (11.4-14.6) H 02/11/25 07:18
INR 2.38 02/11/25 07:18
APTT 35.0 Sec (23.4-35.0) 02/10/25 05:11
Magnesium 1.3 mg/dl (1.6-2.3) L 02/11/25 07:18
Triglycerides 124 mg/dl (10-149) 02/10/25 05:11
LDL Cholesterol, Calc 28 mg/dl 02/10/25 05:11
VLDL Cholesterol, Calc 24 mg/dl (0-30) 02/10/25 05:11
HDL Cholesterol 34 mg/dl 02/10/25 05:11
02/10/25
05:11
Ban-B-Weyrhaslrmf Pept [id number]
Physical Exam
Constitutional: No acute distress and Comfortable
EENT: Anicteric and Moist mucous membranes
Cardiovascular: Rhythm/rate is irregular and S1S2 is normal
Respiratory: Respiratory effort normal and Lungs clear to auscul.
GI: Soft, Distention absent, Flat and Non tender
Neuro/Psych: AO x 3
Other: Skin (Warm and dry)
Data Reviewed
-
Date of Service: February 11, 2025
[2025-02-11] MEDS: ATIVAN 2 MG IV (09:50)
[2025-02-11] MEDS: FLUSH (NSS) 1 FLUSH IV (09:52)
[2025-02-11] MEDS: NSS (PRESERVATIVE FREE) 1 ML IV (09:52)
[2025-02-11 11:15] VITALS: BMI 20.6
[2025-02-11 11:43] LABS: Folate 8.8 ng/ml (2.76-20); Vitamin B12 236 pg/ml (239-931)
[2025-02-11] MEDS: NSS 1000 IV (11:52)
[2025-02-11 11:57] VITALS: BP 150/103
[2025-02-11 12:19] LABS: Glucose - Point of Care 98 mg/dl (70-99)
[2025-02-11 15:10] VITALS: BP 164/118
--- NOTE | 2025-02-11 16:36 | PTCARENOTE ---
Pt resting with eyes closed at present; arousable to name/tactile stimuli; becomes combative when awake, attempts to pull at IV tubing/heart monitor; attempts to hit/kick staff when disturbed. Follows simple commands at times. GE randomly when
disturbed. Verbalizes minimally; oriented to self only. VSS. Telemetry:A fib to 130's when pt is restless/agitated. On room air- pulse ox 99%, no SOB noted. Abd soft, sl rounded, NPO maintained. Incont large amts urine; condom cath intact.
IV NSS@ 60 ml/hr infusing via Lt forearm site without x of infiltration. Wrist restraints in place. Will continue to monitor.
[2025-02-11 16:44] LABS: Glucose - Point of Care 105 mg/dl (70-99)
[2025-02-11] MEDS: COUMADIN 5 MG PO (18:02)
[2025-02-11 19:42] VITALS: BP 132/81
[2025-02-11 20:00] VITALS: BMI 20.6
[2025-02-11 23:11] VITALS: BP 93/61
[2025-02-12] VITALS (9 sets, daily range): BP systolic 89–154; BP diastolic 61–106; PULSE 115–140; BMI 20.6
[2025-02-12 00:06] LABS: Glucose - Point of Care 100 mg/dl (70-99)
[2025-02-12] MEDS: TIMOPTIC 0.5% OPHTHALMIC SOLUTION 1 DROP BOTH EYES ×2 (00:19→08:21)
[2025-02-12] MEDS: NSS 1000 IV ×2 (03:02→11:07)
[2025-02-12 06:26] LABS: Glucose - Point of Care 95 mg/dl (70-99)
[2025-02-12] MEDS: THIAMINE INJECTION 100 MG IV (08:20)
[2025-02-12] MEDS: PROTONIX 40 MG PO (08:21)
[2025-02-12 09:07] LABS: Glucose - Point of Care 119 mg/dl (70-99)
--- NOTE | 2025-02-12 09:07 | W.PN.CD ---
Today's Communication / Plan
-
- Diltiazem 10 mg IV x1 and start 60 mg TID po.
Impression / Plan
-
I/P: 80M with atrial fibrillation (on warfarin) who presented with neurologic symptoms concerning for CVA versus TIA. INR subtherapeutic.
Primary supervisor respiratory: Adam, physician unknown
CVA versus TIA
-Change in mental status
-Transient neurologic symptoms including aphasia facial droop and weakness which have resolved
-CT without acute abnormality
-MRI 02/11 - Mild periventricular white matter leukoaraiosis in the frontal and parietal lobes / Mild to moderate diffuse cerebral and cerebellar volume loss.
-Imaging of carotids would recommended carotid ultrasound if neck is not included an MRI
-INR subtherapeutic on admission, INR 1.8, consider NOAC, will be challenging with degree of renal insufficiency
Atrial fibrillation, type unknown
- AF with RVR noted. The rates were 140s to 150s this AM
- Diltiazem 10 mg IV X1.
- Start 60 mg TID but hold if heart rate is low. Goal is to keep AF rates around 100 at rest.
- AMS with agitation - somewhat improved.
-Oral Anticoagulation: Continue warfarin, he presented subtherapeutic, as above - INR now is 2.7.
-[id number]: score at least 5 (age 75 or more, HTN, prior Stroke/TIA)
-ECHO showed normal LVEF.
Hypertension with orthostatic hypotension
-Currently restrained
-Hold amlodipine - switched to Dilt
-Patient receiving additional IV fluid
-With recent CVA versus TIA and orthostatic symptoms we will need to try to avoid hypotension.
CAT on CKD
- Stable around 2.2. Came in at 2.9. Possible baseline around 2.0
- this will make NOAC decision challenging
SUBJECTIVE:
He denies chest pain and dizziness. He is currently oriented to himself.
Physical Exam
Vital Signs/Labs
Vital Signs
Temp Pulse Resp BP Pulse Ox
97.5 F 134 20 146/104 98
02/12/25 07:50 02/12/25 07:50 02/12/25 07:50 02/12/25 07:50 02/12/25 07:50
02/11/25 02/12/25 02/13/25
06:59 06:59 06:59
Actual Weight 68.946 kg
PT 26.0 Sec (11.4-14.6) H 02/11/25 07:18
INR 2.38 02/11/25 07:18
APTT 35.0 Sec (23.4-35.0) 02/10/25 05:11
Magnesium 1.3 mg/dl (1.6-2.3) L 02/11/25 07:18
Triglycerides 124 mg/dl (10-149) 02/10/25 05:11
LDL Cholesterol, Calc 28 mg/dl 02/10/25 05:11
VLDL Cholesterol, Calc 24 mg/dl (0-30) 02/10/25 05:11
HDL Cholesterol 34 mg/dl 02/10/25 05:11
02/10/25
05:11
Hdf-Y-Jzxdmbohfgv Pept [id number]
Physical Exam
Constitutional: No acute distress and Comfortable
EENT: Anicteric and Moist mucous membranes
Cardiovascular: JVD pressure is normal, Rhythm/rate is irregular and Systolic murmur present
Respiratory: Respiratory effort normal, Lungs clear to auscul. and Wheeze Absent
GI: Normal bowel sounds
Neuro/Psych: Alert, Oriented and AO x 3
Data Reviewed
-
Date of Service: February 12, 2025
Medical Decision Making: Reviewed Test Results, Test Interpretation and Review of Case with other Provider
EKG: Tracing Personally Visualized and interpreted
Echo: Report Reviewed by me
X-Ray/CT/US/MRI/NUC/PET: Image Personally Visualized and interpreted
Medical Tests (PFT, Pathology etc): Discussed with Nurse and Discussed with Patient
Labs: Labs Reviewed by me
Old Records: Reviewed
Critical Care Time (in minutes): 32
[2025-02-12] MEDS: CARDIZEM 10 MG IV (09:14)
[2025-02-12 09:28] LABS: Hematocrit 39.5 % (39.0-52.0); Hemoglobin 12.9 g/dL (13.0-18.0); Mean Corp Hgb Conc. 32.7 g/dL (33.0-37.0); Mean Corpuscular Volume 83.3 fL (80.0-94.0); Platelet Count 217 10^3/uL (130-400); Red Cell Dist. Width 14.6 % (11.5-14.5)
[2025-02-12 09:34] LABS: INR 2.75; PT 29.5 Sec (11.4-14.6)
[2025-02-12 09:58] LABS: Blood Urea Nitrogen 36 mg/dl (9-20); Calcium 9.2 mg/dl (8.4-10.2); Carbon Dioxide 20 mmol/L (22-30); Chloride 109 mmol/L (98-107); Estimated Creatinine Clearance 25 ml/min; Glucose 114 mg/dl (70-99); Magnesium 1.7 mg/dl (1.6-2.3); Potassium 3.8 mmol/L (3.5-5.1); Sodium 142 mmol/L (135-145); eGFR 29.17
--- NOTE | 2025-02-12 10:16 | W.PN.HOSP.TC ---
Addendum entered and electronically signed by Teressa Germain MD 02/12/25 10:36:
Noted Diltiazem 10 mg IV x1 and 60 mg TID po started by card
Original Note:
Today's Communication/Plan
-
see A/P
Assessment / Plan
Assessment / Plan
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
weakness and facial droop that lasted for about 30 minutes and now resolved (NIHSS equals 0).
He was found to be in A-fib with RVR in the emergency department. Patient is chronically on anticoagulation with Coumadin for atrial fibrillation.
He appeared to have had some recent weakness from dehydration and Jardiance was discontinued.
He is currently in the middle of see new PMD and travel agency manager at [facility]. He reports compliance with his medications.
A/P:
# Resolved neurologic deficit, 2/2 CVA vs TIA in setting of atrial fibrillation with subtherapeutic anticoagulation on admission
Cont property assessment monitor
Admission CT head No acute intracranial abnormalities appreciated.
Follow up MRI brain also negative for stroke
Neuro on board
Of note, LDL 28, A1c 6%
Noted positive orthostatic hypotension
PT eval
# acute metabolic encephalopathy/ Agitation overnight 02/11 with behavioral disturbance, likely due to dementia (although not formally diagnosed previously)
No formal diagnosis of dementia per , however has noticed that pt has become more forgetful
repeat CT head and MRI brain without acute infarct.
Restarted diet Pureed, SPL eval prior to advancement
Neuro consulted
# Persistent A-fib with RVR
Cont ENVIRONMENTAL LABORATORY TECHNICIAN warfarin 5 mg daily
daily INR, goal 2-3
s/p Cardizem drip
Off ENVIRONMENTAL LABORATORY TECHNICIAN flecainide and atenolol per card
Echo unrevealing: Normal biventricular size and systolic function without regional wall motion abnormality. Estimated LVEF 50-55%. No significant valve disease. No prior study available for comparison.
Cardiology on board
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
creatinine on admission at 2.9 -> ... -> 2.2 today
Per , last SCr from December 2024 was at 2.25; SCr from Aug 2024 was at 1.81
Hold ENVIRONMENTAL LABORATORY TECHNICIAN chlorthalidone, ACEI
Hold ENVIRONMENTAL LABORATORY TECHNICIAN metformin
Observe off additional IV fluids
# NIDDM
Hold Jardiance and metformin with CKD status
A1c 6%
Sliding scale insulin coverage
# Hypomagnesemia
repleted IV
DVT prophylaxis�on warfarin
CODE STATUS�full code
DW RN
updated on the phone. Answered all questions.
total time spent 51 min
Anticipated Discharge: Within 24 hours
Subjective/Interval History
-
Date of Service: February 12, 2025
Objective Data
-
Labs:
Laboratory Results
02/12/25 02/12/25
08:49 08:50
WBC 10.6
Hgb 12.9 L
Hct 39.5
Plt Count 217
PT 29.5 H
INR 2.75
Sodium 142
Potassium 3.8
Chloride 109 H
Carbon Dioxide 20 L
BUN 36 H
Creatinine 2.2 H
Glucose 114 H
Calcium 9.2
Vital Signs:
Vital Signs
Temp Pulse Resp BP Pulse Ox
36.4 C 134 20 146/104 98
02/12/25 07:50 02/12/25 07:50 02/12/25 07:50 02/12/25 07:50 02/12/25 07:50
I&O
02/11/25 02/12/25 02/13/25
06:59 06:59 06:59
Intake Total 400 / 400 1200 / 1200
Output Total 350 / 350 475 / 475
Balance 50 / 50 725 / 725
Review of Systems
-
Unable to obtain full review of systems at this time due to: Dementia
All other systems: Reviewed and negative
Physical Exam
-
General: Well Developed, Well Nourished, No Apparent Distress, Comfortable and Conversant; Negative Respiratory Distress
HEENT: Normocephalic, Atraumatic, Nose Appears Normal and Ears Appear Normal; Negative Oxygen
Respiratory: Clear to Auscultation and Non Labored Respirations; Negative Accessory Resp Muscle Use
Cardiac: S1/S2, Irregular Rhythm and Tachycardic
GI: Soft, Nontender, Nondistended and Normal Bowel Sounds
Skin: Warm and Dry
Neuro: Awake
Psych: Calm; Negative Intact Judgement/Insight
Data Reviewed
-
CT Scan: Report Reviewed by me
Labs: Labs Reviewed by me
--- NOTE | 2025-02-12 12:05 | PTOTSP ---
ST Acute Care Evaluation
Pt currently presents with clinical signs of moderate oral dysphagia characterized by prolonged mastication and bolus formation with hard solids, reduced bolus formation, diffuse oral residue, and reduced oral awareness. Pt also exhibits clinical
signs of scant pharyngeal dysphagia as evidenced by infrequent throat clearing s/p ingestion of thin liquids which could indicate airway invasion.
Pt is at an increased risk for aspiration given his waxing/waning mental status/agitation, reduced insight to his deficits, and reduced receptiveness to external cueing/reminders to utilize compensatory strategies to aid oral clearance and increase
airway protection when consuming PO.
Recommendations:
- Continue with pureed solids, thin liquids, and meds whole in puree.
- Continue with aspiration precautions and compensatory strategies including: HOB upright during meals, close supervisiong during meals, encourage small bites/sips, encourage slow intake rate, and only allow pt to eat/drink when fully awake/alert
(in the event pt is provided with any sedatives for his behavior).
- BEHAVIORAL GENETICIST team to f/u re: pt's diet tolerance and to re-assess pt's candidacy/appropriateness for solid consistency upgrades.
- Recommending out patient neuropsych evaluation upon discharge.
[2025-02-12] MEDS: NOVOLOG FLEXPEN-LOW RESISTANCE SC ×2 (12:36→17:22)
[2025-02-12] MEDS: VITAMIN B-12 1000 MCG PO (12:36)
[2025-02-12 12:37] LABS: Glucose - Point of Care 133 mg/dl (70-99)
[2025-02-12] MEDS: ALPRAZOLAM ODT 0.25 MG PO (14:26)
[2025-02-12] MEDS: CARDIZEM PO (16:19)
[2025-02-12] MEDS: NSS IV (16:59)
[2025-02-12 17:03] LABS: Glucose - Point of Care 142 mg/dl (70-99)
[2025-02-12] MEDS: COUMADIN PO ×2 (17:33→18:37)
[2025-02-12] MEDS: CARDIZEM 60 MG PO (20:23)
[2025-02-12] MEDS: TIMOPTIC 0.5% OPHTHALMIC SOLUTION BOTH EYES ×2 (20:24→20:27)
[2025-02-12 21:11] LABS: Glucose - Point of Care 103 mg/dl (70-99)
[2025-02-13] VITALS (9 sets, daily range): BP systolic 93–144; BP diastolic 59–97; BMI 20.5
[2025-02-13] MEDS: ALPRAZOLAM ODT 0.25 MG PO (03:55)
[2025-02-13] MEDS: CARDIZEM PO (06:40)
[2025-02-13 07:44] LABS: Hematocrit 38.2 % (39.0-52.0); Hemoglobin 12.4 g/dL (13.0-18.0); Mean Corp Hgb Conc. 32.5 g/dL (33.0-37.0); Mean Corpuscular Volume 83.0 fL (80.0-94.0); Platelet Count 209 10^3/uL (130-400); Red Cell Dist. Width 14.8 % (11.5-14.5)
[2025-02-13 07:58] LABS: INR 2.91; PT 30.8 Sec (11.4-14.6)
[2025-02-13] MEDS: CARDIZEM 60 MG PO ×2 (07:58→20:44)
[2025-02-13] MEDS: PROTONIX 40 MG PO (07:58)
[2025-02-13] MEDS: VITAMIN B-12 1000 MCG PO (07:59)
[2025-02-13] MEDS: THIAMINE INJECTION 100 MG IV (07:59)
[2025-02-13] MEDS: FLUSH (NSS) 2 FLUSH IV (07:59)
[2025-02-13] MEDS: TIMOPTIC 0.5% OPHTHALMIC SOLUTION 1 DROP BOTH EYES ×2 (08:00→20:06)
[2025-02-13 08:12] LABS: Glucose - Point of Care 144 mg/dl (70-99)
[2025-02-13 08:12] LABS: Blood Urea Nitrogen 42 mg/dl (9-20); Calcium 9.4 mg/dl (8.4-10.2); Carbon Dioxide 20 mmol/L (22-30); Chloride 109 mmol/L (98-107); Estimated Creatinine Clearance 22 ml/min; Glucose 112 mg/dl (70-99); Potassium 3.7 mmol/L (3.5-5.1); Sodium 142 mmol/L (135-145); eGFR 25.02
[2025-02-13] MEDS: NOVOLOG FLEXPEN-LOW RESISTANCE SC ×3 (08:15→17:04)
--- NOTE | 2025-02-13 09:00 | W.PN.CD ---
Today's Communication / Plan
-
- Rate control with Dilt 240 mg QD and prn 60 tid
- Decrease Warfarin to 3
Impression / Plan
-
I/P: 80M with atrial fibrillation (on warfarin) who presented with neurologic symptoms concerning for CVA versus TIA. INR subtherapeutic.
Primary ramp manager: Adam, physician unknown
CVA versus TIA
-Change in mental status
-Transient neurologic symptoms including aphasia facial droop and weakness which have resolved
-CT without acute abnormality
-MRI 02/11 - Mild periventricular white matter leukoaraiosis in the frontal and parietal lobes / Mild to moderate diffuse cerebral and cerebellar volume loss.
-Imaging of carotids would recommended carotid ultrasound if neck is not included an MRI
-INR subtherapeutic on admission, INR 1.8, consider NOAC, will be challenging with degree of renal insufficiency
Atrial fibrillation, type unknown
- AFlutter this AM - possible atypical
- AF with RVR noted. The rates were 140s to 150s this AM
- Diltiazem 240 mg QD and 60 mg TID prn
- AMS with agitation - somewhat improved.
-Oral Anticoagulation: Continue warfarin, he presented subtherapeutic, as above - INR now is 2.9.
-Decrease Warfarin from 5 to 3
-[id number]: score at least 5 (age 75 or more, HTN, prior Stroke/TIA)
-ECHO showed normal LVEF.
Hypertension with orthostatic hypotension
-Currently restrained
-Hold amlodipine - switched to Dilt
-Patient receiving additional IV fluid
-With recent CVA versus TIA and orthostatic symptoms we will need to try to avoid hypotension.
CAT on CKD
- getting worse again -now 2.5. Came in at 2.9. Possible baseline around 2.2
- this will make NOAC decision challenging
SUBJECTIVE:
He denies chest pain and dizziness. He is currently oriented to himself.
Physical Exam
Vital Signs/Labs
Vital Signs
Temp Pulse Resp BP Pulse Ox
97.7 F 150 22 105/70 99
02/13/25 04:54 02/13/25 07:58 02/13/25 04:54 02/13/25 07:58 02/13/25 04:54
02/13/25 07:30
02/13/25 07:30
PT 30.8 Sec (11.4-14.6) H 02/13/25 07:30
INR 2.91 02/13/25 07:30
APTT 35.0 Sec (23.4-35.0) 02/10/25 05:11
Magnesium 1.7 mg/dl (1.6-2.3) 02/12/25 08:49
Triglycerides 124 mg/dl (10-149) 02/10/25 05:11
LDL Cholesterol, Calc 28 mg/dl 02/10/25 05:11
VLDL Cholesterol, Calc 24 mg/dl (0-30) 02/10/25 05:11
HDL Cholesterol 34 mg/dl 02/10/25 05:11
02/10/25
05:11
[id number] Pept [id number]
Physical Exam
Constitutional: No acute distress and Comfortable
EENT: Anicteric and Moist mucous membranes
Cardiovascular: Pedal edema is absent, Rhythm/rate is irregular, JVD present and Systolic murmur present
Respiratory: Respiratory effort normal and Wheeze Absent
GI: Soft, Non tender and Normal bowel sounds
Neuro/Psych: Alert, Oriented and AO x 3
Data Reviewed
-
Date of Service: February 13, 2025
Medical Decision Making: Reviewed Test Results, Test Interpretation and Review of Case with other Provider
EKG: Tracing Personally Visualized and interpreted
Echo: Report Reviewed by me
Labs: Labs Reviewed by me
Old Records: Reviewed
[2025-02-13] MEDS: CARDIZEM CD PO (10:40)
[2025-02-13] MEDS: SEROQUEL 12.5 MG PO ×2 (11:19→20:05)
[2025-02-13] MEDS: SENOKOT-S 1 TABLET PO (11:25)
--- NOTE | 2025-02-13 11:50 | W.PN.HOSP.TC ---
Today's Communication/Plan
-
Seroquel, Haldol PRN
Diltiazem XL
Coumadin adjustment
Assessment / Plan
Assessment / Plan
General: Well Developed, Well Nourished, No Apparent Distress, Comfortable and Conversant; Negative Respiratory Distress
HEENT: Normocephalic, Atraumatic, Nose Appears Normal and Ears Appear Normal; Negative Oxygen
Respiratory: Clear to Auscultation and Non Labored Respirations; Negative Accessory Resp Muscle Use
Cardiac: S1/S2, Irregular Rhythm and Tachycardic
GI: Soft, Nontender, Nondistended and Normal Bowel Sounds
Skin: Warm and Dry
Neuro: Awake
Psych: Calm; Negative Intact Judgement/Insight
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
weakness and facial droop that lasted for about 30 minutes and now resolved (NIHSS equals 0).
He was found to be in A-fib with RVR in the emergency department. Patient is chronically on anticoagulation with Coumadin for atrial fibrillation.
He appeared to have had some recent weakness from dehydration and Jardiance was discontinued.
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 He reports compliance with his medications.
A/P:
# Resolved neurologic deficit, 2/2 CVA vs TIA in setting of atrial fibrillation with subtherapeutic anticoagulation on admission
Cont medical examiner
Admission CT head No acute intracranial abnormalities appreciated.
Follow up MRI brain also negative for stroke
Neuro on board
Of note, LDL 28, A1c 6%
Noted positive orthostatic hypotension
PT eval
# acute metabolic encephalopathy/ Agitation overnight 02/11 with behavioral disturbance, likely due to dementia (although not formally diagnosed previously) + Delerium
No formal diagnosis of dementia per , however has noticed that pt has become more forgetful
repeat CT head and MRI brain without acute infarct.
Restarted diet Pureed, SPL - Pureed diet
Neuro consulted
Started Seroquel BID, Haldol PRN
Avoid benzodiazepines
# Persistent A-fib with RVR
Cont CATERING SERVER warfarin reduce to 3 mg daily
daily INR, goal 2-3
s/p Cardizem drip
Off CATERING SERVER flecainide (indefinitely) and atenolol per card
Diltiazem 60mg TID
Start Diltiazem XL release 240mg Daily
Echo unrevealing: Normal biventricular size and systolic function without regional wall motion abnormality. Estimated LVEF 50-55%. No significant valve disease. No prior study available for comparison.
Cardiology on board
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
Monitor
Per , last SCr from December 2024 was at 2.25; SCr from Aug 2024 was at 1.81
Hold CATERING SERVER chlorthalidone, ACEI
Hold CATERING SERVER metformin
Observe off additional IV fluids
# NIDDM
Hold Jardiance and metformin with CKD status
A1c 6%
Sliding scale insulin coverage
# Hypomagnesemia
repleted IV
DVT prophylaxis�on warfarin
CODE STATUS�full code
Anticipated Discharge: 24 - 48 hours
Subjective/Interval History
-
Date of Service: February 13, 2025
Continues to be agitated
Objective Data
-
Labs:
Laboratory Results
02/13/25
07:30
WBC 10.2
Hgb 12.4 L
Hct 38.2 L
Plt Count 209
PT 30.8 H
INR 2.91
Sodium 142
Potassium 3.7
Chloride 109 H
Carbon Dioxide 20 L
BUN 42 H
Creatinine 2.5 H
Glucose 112 H
Calcium 9.4
Vital Signs:
Vital Signs
Temp Pulse Resp BP Pulse Ox
97.4 F 76 20 121/75 100
02/13/25 08:00 02/13/25 10:40 02/13/25 08:00 02/13/25 10:40 02/13/25 08:00
I&O
02/12/25 02/13/25 02/14/25
06:59 06:59 06:59
Intake Total 1200 / 1200 120 / 120
Output Total 475 / 475 700 / 700
Balance 725 / 725 -580 / -580
Review of Systems
-
History Source: Patient
All other systems: Not reviewed unless documented
Data Reviewed
-
CT Scan: Report Reviewed by me
Labs: Labs Reviewed by me
[2025-02-13 12:03] LABS: Glucose - Point of Care 127 mg/dl (70-99)
[2025-02-13 17:00] LABS: Glucose - Point of Care 123 mg/dl (70-99)
[2025-02-13] MEDS: COUMADIN 3 MG PO (17:58)
--- NOTE | 2025-02-13 18:30 | PTCARENOTE ---
Pt able to sleep this afternoon for approx 1.5hrs after receiving Seroquel. Pt had periods of restlessness today/slight agitation, but not combative. Pt cooperative in gerson-chair with 1:1 supervision for safety. Pt's in to visit today.
Pt's HR 70s-to low 100s after am dose of Cardizem. Unable to get orthostatic BPs today as pt not cooperative. Abdominal binder able to be placed while in gerson-chair. A couple of episodes where heart rate went up to 130s-140s this evening with
restlessness but nonstaining. HR sustaining around 90s-low 100s, continuing to monitor.
--- NOTE | 2025-02-13 21:15 | PTCARENOTE ---
Received patient as a transfer from . Patient is confused and unable to answer orientation questions. No outward signs of distress at this time. Vitals are WNL except HR, which is in the 120s, but does come down at rest. Patient on tele monitor.
Pt has hx of afib. 1:1 transported from with patient.
[2025-02-14] VITALS (10 sets, daily range): BP systolic 85–146; BP diastolic 54–91; PULSE 76–86
--- NOTE | 2025-02-14 01:00 | PTCARENOTE ---
Patient is mildly restless, confused, sitting up on the side of his bed, wanting to get up at times, saying he wants to go see his . Pulls at his gown and tele wires at times. Messaged ASSOCIATE CIVIL ENGINEER for Melatonin, which was ordered; however, patient
refused to take it. Patient stated that he doesn't want 'that poison.'
--- NOTE | 2025-02-14 01:52 | PTCARENOTE ---
Offered patient a drink of water or oj johnny. Patient declined several times. Mouth moisturizer applied.
[2025-02-14] MEDS: HALDOL 1 MG IV (04:53)
--- NOTE | 2025-02-14 05:03 | PTCARENOTE ---
Patient becoming more impulsive and appears to be visually hallucinating. He is grabbing at things in the air and floor. Continues to be restless. He pulled off his tele monitor multiple times. Needs frequent redirection. He was on all 4s in the bed
then tried to get OOB. Messaged PERMIT AGENT prior to administering first dose of IV Haldol. She advised to give it. EKG ordered in AM x 2 per protocol. Tele monitor reconnected. HR ranges from 90s-140's. HR comes back down to 110's-120's after briefly
jumping into the 130's-140's.
--- NOTE | 2025-02-14 08:56 | W.PN.CD ---
Addendum entered and electronically signed by Lenny Valenzuela MD 02/14/25 10:19:
I saw and examined the patient.
The BI SPECIALIST's note was reviewed and I agree with the note.
Comment: monitor HR now on dilt
Original Note:
Today's Communication / Plan
-
-monitor response to addition of 240 mg diltiazem (ER), which is being started today (BPs including orthos, as well as HR)
-Labs this AM pending- monitor renal function and INR's closely as he remains on warfarin for OAC
Impression / Plan
-
I/P: 80M with atrial fibrillation (on warfarin) who presented with neurologic symptoms concerning for CVA versus TIA. INR subtherapeutic.
Primary engine turner: Adam, physician unknown
CVA versus TIA
-Change in mental status
-Transient neurologic symptoms including aphasia facial droop and weakness which have resolved
-CT without acute abnormality
-MRI 02/11 - Mild periventricular white matter leukoaraiosis in the frontal and parietal lobes / Mild to moderate diffuse cerebral and cerebellar volume loss.
-carotids <50% stenosis u/s
-INR subtherapeutic on admission, INR 1.8, now therapeutic; OACs may be a good consideration depending on mental status, renal function and cost.
Atrial fibrillation, type unknown
-flecainide stopped.
-AFlutter and afib both noted. Still with fast rates at times, though currently controlled while he is asleep. Agitation seems to be playing a role here.
- Diltiazem 240 mg QD (starting today) and 60 mg TID prn
-Oral Anticoagulation: On warfarin, he presented subtherapeutic, but has been therapeutic since. INR today is pending.
-Warfarin decreased- needs close monitoring
-[id number]: score at least 5 (age 75 or more, HTN, prior Stroke/TIA)
-ECHO showed normal LVEF.
Hypertension with orthostatic hypotension:
-fluids given
-amlodipine, atenolol/chlorthalidone, and enalapril off at this time.
-now on diltiazem- monitor HR and BP response (including orthos)
CAT on CKD
-renal function has been variable- monitor. Today's pending.
SUBJECTIVE:
Patient is sleeping comfortably. PCT on 1:1 told me he did not get sleep all night. He required Hadol this AM per chart.
Physical Exam
Vital Signs/Labs
Vital Signs
Temp Pulse Resp BP Pulse Ox
98.5 F 88 18 142/91 96
02/14/25 08:00 02/14/25 08:00 02/14/25 08:00 02/14/25 08:00 02/14/25 08:00
02/13/25 02/14/25 02/15/25
06:59 06:59 06:59
Actual Weight 68.663 kg
PT 30.8 Sec (11.4-14.6) H 02/13/25 07:30
INR 2.91 02/13/25 07:30
APTT 35.0 Sec (23.4-35.0) 02/10/25 05:11
Magnesium 1.7 mg/dl (1.6-2.3) 02/12/25 08:49
Triglycerides 124 mg/dl (10-149) 02/10/25 05:11
LDL Cholesterol, Calc 28 mg/dl 02/10/25 05:11
VLDL Cholesterol, Calc 24 mg/dl (0-30) 02/10/25 05:11
HDL Cholesterol 34 mg/dl 02/10/25 05:11
02/10/25
05:11
[id number] Pept [id number]
Physical Exam
Constitutional: No acute distress
Cardiovascular: Rhythm/rate is irregular
Respiratory: Respiratory effort normal
Data Reviewed
-
Date of Service: February 14, 2025
EKG: Other (AFIB, aflutter, fast rates at times)
Labs: Labs Reviewed by me (today's labs pending, others reviewed)
[2025-02-14 09:40] LABS: Glucose - Point of Care 102 mg/dl (70-99)
[2025-02-14] MEDS: CARDIZEM CD 240 MG PO (10:00)
[2025-02-14] MEDS: NOVOLOG FLEXPEN-LOW RESISTANCE SC ×3 (10:06→18:28)
[2025-02-14] MEDS: PROTONIX 40 MG PO (10:07)
[2025-02-14] MEDS: SEROQUEL 12.5 MG PO ×2 (10:08→21:44)
[2025-02-14] MEDS: VITAMIN B-12 1000 MCG PO (10:09)
[2025-02-14] MEDS: THIAMINE INJECTION 100 MG IV (10:10)
[2025-02-14] MEDS: TIMOPTIC 0.5% OPHTHALMIC SOLUTION 1 DROP BOTH EYES (10:10)
[2025-02-14 10:38] LABS: Hematocrit 35.2 % (39.0-52.0); Hemoglobin 11.5 g/dL (13.0-18.0); Mean Corp Hgb Conc. 32.7 g/dL (33.0-37.0); Mean Corpuscular Volume 83.2 fL (80.0-94.0); Platelet Count 192 10^3/uL (130-400); Red Cell Dist. Width 14.6 % (11.5-14.5)
[2025-02-14 10:45] LABS: INR 2.96; PT 31.2 Sec (11.4-14.6)
[2025-02-14 11:07] LABS: ALT (SGPT) 22 U/L (0-50); AST (SGOT) 31 U/L (17-59); Albumin 3.9 g/dl (3.5-5.0); Alkaline Phosphatase 70 U/L (38-126); Blood Urea Nitrogen 41 mg/dl (9-20); Calcium 9.2 mg/dl (8.4-10.2); Carbon Dioxide 17 mmol/L (22-30); Chloride 109 mmol/L (98-107); Estimated Creatinine Clearance 23 ml/min; Glucose 115 mg/dl (70-99); Potassium 3.7 mmol/L (3.5-5.1); Sodium 142 mmol/L (135-145); Total Protein 6.4 g/dl (6.3-8.2); eGFR 26.28
[2025-02-14 12:24] LABS: Glucose - Point of Care 149 mg/dl (70-99)
--- NOTE | 2025-02-14 13:16 | W.PN.HOSP.TC ---
Today's Communication/Plan
-
cont Seroquel
Monitor HRs on Dilt
Assessment / Plan
Assessment / Plan
General: Well Developed, Well Nourished, No Apparent Distress, Comfortable and Conversant; Negative Respiratory Distress
HEENT: Normocephalic, Atraumatic, Nose Appears Normal and Ears Appear Normal; Negative Oxygen
Respiratory: Clear to Auscultation and Non Labored Respirations; Negative Accessory Resp Muscle Use
Cardiac: S1/S2, Irregular Rhythm and Tachycardic
GI: Soft, Nontender, Nondistended and Normal Bowel Sounds
Skin: Warm and Dry
Neuro: Awake
Psych: Calm; Negative Intact Judgement/Insight
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
weakness and facial droop that lasted for about 30 minutes and now resolved (NIHSS equals 0).
He was found to be in A-fib with RVR in the emergency department. Patient is chronically on anticoagulation with Coumadin for atrial fibrillation.
He appeared to have had some recent weakness from dehydration and Jardiance was discontinued.
He is currently in the middle of see new PMD and pier hand at [facility]. He reports compliance with his medications.
A/P:
# Resolved neurologic deficit, 2/2 CVA vs TIA in setting of atrial fibrillation with subtherapeutic anticoagulation on admission
Cont secured entrance monitor
Admission CT head No acute intracranial abnormalities appreciated.
Follow up MRI brain also negative for stroke
Neuro on board
Of note, LDL 28, A1c 6%
Noted positive orthostatic hypotension
PT eval
# acute metabolic encephalopathy/ Agitation overnight 02/11 with behavioral disturbance, likely due to dementia (although not formally diagnosed previously) + Delirium; improved
No formal diagnosis of dementia per , however has noticed that pt has become more forgetful
repeat CT head and MRI brain without acute infarct.
Restarted diet Pureed, SPL - Pureed diet
Neuro consulted
Continue Seroquel BID, Haldol PRN
Avoid benzodiazepines
# Persistent A-fib with RVR
Cont MILK INSPECTOR warfarin reduce to 3 mg daily
daily INR, goal 2-3
s/p Cardizem drip
Off MILK INSPECTOR flecainide (indefinitely) and atenolol per card
Diltiazem 60mg TID
Started Diltiazem XL release 240mg Daily - monitor
Echo unrevealing: Normal biventricular size and systolic function without regional wall motion abnormality. Estimated LVEF 50-55%. No significant valve disease. No prior study available for comparison.
Cardiology on board
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
Monitor
Per , last SCr from December 2024 was at 2.25; SCr from Aug 2024 was at 1.81
Hold MILK INSPECTOR chlorthalidone, ACEI
Hold MILK INSPECTOR metformin
Observe off additional IV fluids
# NIDDM
Hold Jardiance and metformin with CKD status
A1c 6%
Sliding scale insulin coverage
# Hypomagnesemia
repleted IV
DVT prophylaxis�on warfarin
CODE STATUS�full code
Anticipated Discharge: 24 - 48 hours
Subjective/Interval History
-
Date of Service: February 14, 2025
mental status greatly improved
Objective Data
-
Labs:
Laboratory Results
02/14/25
10:19
WBC 10.4
Hgb 11.5 L
Hct 35.2 L
Plt Count 192
PT 31.2 H
INR 2.96
Sodium 142
Potassium 3.7
Chloride 109 H
Carbon Dioxide 17 L
BUN 41 H
Creatinine 2.4 H
Glucose 115 H
Calcium 9.2
Total Bilirubin 0.9
AST 31
ALT 22
Alkaline Phosphatase 70
Vital Signs:
Vital Signs
Temp Pulse Resp BP Pulse Ox
97.9 F 97 18 141/89 99
02/14/25 11:17 02/14/25 11:17 02/14/25 11:17 02/14/25 11:17 02/14/25 11:17
I&O
02/13/25 02/14/25 02/15/25
06:59 06:59 06:59
Intake Total 120 / 120 360 / 360 500 / 500
Output Total 700 / 700 300 / 300 800 / 800
Balance -580 / -580 60 / 60 -300 / -300
Review of Systems
-
History Source: Patient
All other systems: Not reviewed unless documented
Physical Exam
-
General: Well Developed, Well Nourished, No Apparent Distress, Comfortable and Conversant; Negative Respiratory Distress
HEENT: Normocephalic, Atraumatic, Nose Appears Normal and Ears Appear Normal; Negative Oxygen
Respiratory: Clear to Auscultation and Non Labored Respirations; Negative Accessory Resp Muscle Use
Cardiac: S1/S2, Irregular Rhythm and Tachycardic
GI: Soft, Nontender, Nondistended and Normal Bowel Sounds
Skin: Warm and Dry
Neuro: Awake, Alert and Oriented (x2)
Psych: Calm; Negative Intact Judgement/Insight
Data Reviewed
-
CT Scan: Report Reviewed by me
Labs: Labs Reviewed by me
--- NOTE | 2025-02-14 14:11 | PTOTSP ---
Speech Therapy
Pt seen with trials of regular, ground, puree, and thins. Pt self-feeding with adequate oral containment. Mild oral residue with regular solids dispersed t/o oral cavity. Pt cleared independently with lingual sweep and liquid wash. Pt denied globus
sensation. With thins, multiple swallows, HLE present upon palpation. No overt s/sx of aspiration during bedside PO trials. No breath changes or wet vocal quality. Spoke with RN re: aspiration precautions.
Recommendations:
1. Recommend upgrade to regular solids and thin liquids
2. Meds administered as tolerated
3. ST to monitor tolerance of current diet
4. Continue with aspiration precautions and compensatory strategies including: HOB upright during meals, close supervision during meals, encourage small bites/sips, encourage slow intake rate, and only allow pt to eat/drink when fully awake/alert
(in the event pt is provided with any sedatives for his behavior)
--- NOTE | 2025-02-14 14:29 | CM ---
CM reviewed chart, patient remains on 1:1: Call to patients , Mine, to discuss SNF recommendation, left VM with direct call back number. CM will continue to follow for all discharge planning needs.
Plan; therapy recommending SNF, left VM for to discuss
--- NOTE | 2025-02-14 15:30 | PTCARENOTE ---
1500 Earlier pt was more alert and cooperative and knew he was in the hospital, especially when came to visit pt. Attempted to trial off one to one observation, bed alarm in place. Noted once pt's left room, pt became more anxious,agitated
and restless. Pt placed back on one to one observation, continue to monitor pt closely.
[2025-02-14 17:24] LABS: Glucose - Point of Care 133 mg/dl (70-99)
[2025-02-14] MEDS: COUMADIN PO ×4 (18:31→20:04)
--- NOTE | 2025-02-14 18:45 | PTCARENOTE ---
1845 Attempted to give coumadin 3mg po as ordered, pt refused. Noted pt more confuse and agitated. Dr. Ruth notified via tiger text.
Reported to second shift supervisor nurse, pt refuse coumadin dose.
[2025-02-14] MEDS: SEROQUEL PO ×2 (19:51→20:04)
[2025-02-14] MEDS: TIMOPTIC 0.5% OPHTHALMIC SOLUTION OPHTH ×2 (19:59→20:04)
[2025-02-14 21:35] LABS: Glucose - Point of Care 130 mg/dl (70-99)
[2025-02-14] MEDS: COUMADIN 3 MG PO (21:47)
--- NOTE | 2025-02-14 22:00 | PTCARENOTE ---
Patient refused 8pm meds on several occassions, despite informing him of the importance of his medication (coumadin that he refused earlier in the day), saying that he will take his meds from home. He was also talking about his mom, wanting to leave
to see her and make sure she's ok. Asked patient if he knows where he's at, he replied 'I'm nowhere.' Asked him what year it is, he replied 'I'll take care of it.' Around 2144, patient agreed to take pills, but not eye drops.
[2025-02-14] MEDS: CARDIZEM 60 MG PO (23:23)
--- NOTE | 2025-02-14 23:35 | PTCARENOTE ---
PRN Cardizem given for HR >130. Overall, HR range was in the 110's -140s on tele monitor, but began increasing to 150's-160's while patient was at rest.
[2025-02-15] MEDS: HALDOL 1 MG IV ×3 (01:20→14:41)
[2025-02-15 01:31] VITALS: BP 138/74
--- NOTE | 2025-02-15 05:00 | PTCARENOTE ---
Patient was repeatedly trying to get OOB and stand up while RN in the room. Unable to be redirected, so he was brought out into the nurses station, He was placed gerichair at the nurses station, first without being locked, which was unsuccessful.
He repeatedly tried to slide out of the bottom and use his arms to push himself out. He was twisting his gown, throwing pillows on the floor and pulling off tele leads. Skin tear to L elbow while he was trying to get out of the chair. Attempted
numerous times to redirect. IV Haldol given with little to no relief. Patient continued to escalate. Patient placed in his bed with B/L wrist restraints. He yelled loudly in his room for about 10-15 minutes. CROSS COUNTRY/TRACK AND FIELD COACH made aware. Restraint order placed.
Patient's upper extremities are warm with good circulation. Patient continued to ask for pliers or scissors to cut the restraints. Informed him that they can come off once he is able to be calm, safe and follow directions.
While in restraints, patient would repeatedly put his legs over the side of the bed, asking different staff members for something to cut the restraints. Patient toileted and offered/drank fluids.
[2025-02-15 07:38] LABS: Hematocrit 34.9 % (39.0-52.0); Hemoglobin 11.7 g/dL (13.0-18.0); Mean Corp Hgb Conc. 33.5 g/dL (33.0-37.0); Mean Corpuscular Volume 82.3 fL (80.0-94.0); Platelet Count 191 10^3/uL (130-400); Red Cell Dist. Width 14.6 % (11.5-14.5)
[2025-02-15 07:42] LABS: INR 2.73; PT 29.3 Sec (11.4-14.6)
[2025-02-15] MEDS: PROTONIX 40 MG PO (08:02)
[2025-02-15] MEDS: VITAMIN B-12 1000 MCG PO (08:02)
[2025-02-15] MEDS: CARDIZEM CD 240 MG PO (08:03)
[2025-02-15] MEDS: SEROQUEL 12.5 MG PO (08:03)
[2025-02-15] MEDS: TIMOPTIC 0.5% OPHTHALMIC SOLUTION OPHTH ×2 (08:04→20:38)
[2025-02-15 08:07] LABS: Glucose - Point of Care 125 mg/dl (70-99)
[2025-02-15] MEDS: NOVOLOG FLEXPEN-LOW RESISTANCE SC ×3 (08:08→16:21)
[2025-02-15 08:26] LABS: ALT (SGPT) 21 U/L (0-50); AST (SGOT) 28 U/L (17-59); Albumin 3.8 g/dl (3.5-5.0); Alkaline Phosphatase 73 U/L (38-126); Blood Urea Nitrogen 37 mg/dl (9-20); Calcium 8.7 mg/dl (8.4-10.2); Carbon Dioxide 23 mmol/L (22-30); Chloride 105 mmol/L (98-107); Estimated Creatinine Clearance 24 ml/min; Glucose 114 mg/dl (70-99); Potassium 3.4 mmol/L (3.5-5.1); Sodium 140 mmol/L (135-145); Total Protein 6.4 g/dl (6.3-8.2); eGFR 27.66
--- NOTE | 2025-02-15 11:14 | W.PN.CD ---
Today's Communication / Plan
-
Increase dilt to 360
Give 120 mg dilt now
Impression / Plan
-
I/P: 80M with atrial fibrillation (on warfarin) who presented with neurologic symptoms concerning for CVA versus TIA. INR subtherapeutic.
Primary geology instructor: Adam, physician unknown
CVA versus TIA
-Change in mental status
-Transient neurologic symptoms including aphasia facial droop and weakness which have resolved
-CT without acute abnormality
-MRI 02/11 - Mild periventricular white matter leukoaraiosis in the frontal and parietal lobes / Mild to moderate diffuse cerebral and cerebellar volume loss.
-carotids <50% stenosis u/s
-INR subtherapeutic on admission, INR 1.8, now therapeutic; OACs may be a good consideration depending on mental status, renal function and cost.
Atrial fibrillation, type unknown
-flecainide stopped.
-AFlutter and afib both noted. Still with fast rates at times. Agitation seems to be playing a role here. Has recieved Haldol and Seroquel
- Diltiazem increase to 360 mg QD and 60 mg TID prn
-Oral Anticoagulation: On warfarin, he presented subtherapeutic, but has been therapeutic since. INR today is pending.
-Warfarin decreased- needs close monitoring
-[id number]: score at least 5 (age 75 or more, HTN, prior Stroke/TIA)
-ECHO showed normal LVEF.
Hypertension with orthostatic hypotension:
-BP seems OK
CAT on CKD
-renal function has been variable- monitor. Today's pending.
SUBJECTIVE:
AAOx2 person and time; appears slightly confused and agitated has received haldol and seroquel
Physical Exam
Vital Signs/Labs
Vital Signs
Temp Pulse Resp BP Pulse Ox
98.5 F 102 16 138/74 98
02/14/25 23:37 02/14/25 23:37 02/14/25 23:37 02/15/25 01:31 02/14/25 23:37
02/14/25 02/15/25 02/16/25
06:59 06:59 06:59
Actual Weight 151 lb 6 oz
02/15/25 07:05
02/15/25 07:05
PT 29.3 Sec (11.4-14.6) H 02/15/25 07:05
INR 2.73 02/15/25 07:05
APTT 35.0 Sec (23.4-35.0) 02/10/25 05:11
Magnesium 1.7 mg/dl (1.6-2.3) 02/12/25 08:49
Triglycerides 124 mg/dl (10-149) 02/10/25 05:11
LDL Cholesterol, Calc 28 mg/dl 02/10/25 05:11
VLDL Cholesterol, Calc 24 mg/dl (0-30) 02/10/25 05:11
HDL Cholesterol 34 mg/dl 02/10/25 05:11
02/10/25
05:11
[id number] Pept [id number]
Physical Exam
Constitutional: No acute distress and Confusion
EENT: Anicteric
Cardiovascular: Rhythm/rate is irregular
Respiratory: Respiratory effort normal and Lungs clear to auscul.
GI: Soft
Neuro/Psych: Other (oriented to perosn and time not place)
Data Reviewed
-
Date of Service: February 15, 2025
Medical Decision Making: Reviewed Test Results
EKG: Tracing Personally Visualized and interpreted (af)
Echo: Report Reviewed by me
Labs: Labs Reviewed by me
--- NOTE | 2025-02-15 11:14 | CM ---
CM reviewed chart, patient remains on 1:1. CM spoke with patients , Mine. Mine reports patient was independent at home and agreeable for patient to discharge to rehab prior to returning home. requesting referral to [facility],
patient will require insurance auth, will need to be off 1:1, no behaviors prior to placement. CM will place referral for [facility] in [facility]. CM will continue to follow for all discharge planning needs.
Plan; Referral to [facility], will need auth, will need to be off 1:1 likely 24 hrs prior to d/c
[2025-02-15 11:23] VITALS: BP 120/80
[2025-02-15 11:45] LABS: Glucose - Point of Care 148 mg/dl (70-99)
[2025-02-15] MEDS: CARDIZEM CD 120 MG PO (11:58)
--- NOTE | 2025-02-15 13:08 | W.PN.HOSP.TC ---
Today's Communication/Plan
-
Increase diltiazem
Increase Seroquel dosing
Assessment / Plan
Assessment / Plan
General: Well Developed, Well Nourished, No Apparent Distress, Comfortable and Conversant; Negative Respiratory Distress
HEENT: Normocephalic, Atraumatic, Nose Appears Normal and Ears Appear Normal; Negative Oxygen
Respiratory: Clear to Auscultation and Non Labored Respirations; Negative Accessory Resp Muscle Use
Cardiac: S1/S2, Irregular Rhythm and Tachycardic
GI: Soft, Nontender, Nondistended and Normal Bowel Sounds
Skin: Warm and Dry
Neuro: Awake
Psych: Calm; Negative Intact Judgement/Insight
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
weakness and facial droop that lasted for about 30 minutes and now resolved (NIHSS equals 0).
He was found to be in A-fib with RVR in the emergency department. Patient is chronically on anticoagulation with Coumadin for atrial fibrillation.
He appeared to have had some recent weakness from dehydration and Jardiance was discontinued.
He is currently in the middle of see new PMD and senior fund accountant at [facility]. He reports compliance with his medications.
A/P:
# Resolved neurologic deficit, 2/2 CVA vs TIA in setting of atrial fibrillation with subtherapeutic anticoagulation on admission
Cont ring sorter
Admission CT head No acute intracranial abnormalities appreciated.
Follow up MRI brain also negative for stroke
Neuro on board
Of note, LDL 28, A1c 6%
Noted positive orthostatic hypotension
PT eval
#Hypokalemia
-monitor and replete
# acute metabolic encephalopathy/ Agitation with behavioral disturbance, likely due to dementia (although not formally diagnosed previously) + Delirium; waxing and waning
No formal diagnosis of dementia per , however has noticed that pt has become more forgetful
repeat CT head and MRI brain without acute infarct.
Restarted diet Pureed, SPL - Pureed diet
Neuro consulted
Continue Seroquel BID - increased dosing, Haldol PRN
Avoid benzodiazepines
# Persistent A-fib with RVR
Cont SNOWBOARDER warfarin reduce to 3 mg daily
daily INR, goal 2-3
s/p Cardizem drip
Off SNOWBOARDER flecainide (indefinitely) and atenolol per card
Increase Diltiazem XL to 360
Cont Dilt 60mg TID
Echo unrevealing: Normal biventricular size and systolic function without regional wall motion abnormality. Estimated LVEF 50-55%. No significant valve disease. No prior study available for comparison.
Cardiology on board
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
Monitor
Per , last SCr from December 2024 was at 2.25; SCr from Aug 2024 was at 1.81
Hold SNOWBOARDER chlorthalidone, ACEI
Hold SNOWBOARDER metformin
Observe off additional IV fluids
# NIDDM
Hold Jardiance and metformin with CKD status
A1c 6%
Sliding scale insulin coverage
# Hypomagnesemia
repleted IV
DVT prophylaxis�on warfarin
CODE STATUS�full code
Anticipated Discharge: 24 - 48 hours
Subjective/Interval History
-
Date of Service: February 15, 2025
More confused today versus yesterday
Objective Data
-
Labs:
Laboratory Results
02/15/25
07:05
WBC 9.3
Hgb 11.7 L
Hct 34.9 L
Plt Count 191
PT 29.3 H
INR 2.73
Sodium 140
Potassium 3.4 L
Chloride 105
Carbon Dioxide 23
BUN 37 H
Creatinine 2.3 H
Glucose 114 H
Calcium 8.7
Total Bilirubin 1.4 H
AST 28
ALT 21
Alkaline Phosphatase 73
Vital Signs:
Vital Signs
Temp Pulse Resp BP Pulse Ox
97.3 F 99 18 120/80 96
02/15/25 11:23 02/15/25 11:23 02/15/25 11:23 02/15/25 11:23 02/15/25 11:23
I&O
02/14/25 02/15/25 02/16/25
06:59 06:59 06:59
Intake Total 360 / 360 900 / 900
Output Total 300 / 300 1850 / 1850
Balance 60 / 60 -950 / -950
Review of Systems
-
History Source: Patient
All other systems: Not reviewed unless documented
Physical Exam
-
General: Well Developed, Well Nourished, No Apparent Distress, Comfortable and Conversant; Negative Respiratory Distress
HEENT: Normocephalic, Atraumatic, Nose Appears Normal and Ears Appear Normal; Negative Oxygen
Respiratory: Clear to Auscultation and Non Labored Respirations; Negative Accessory Resp Muscle Use
Cardiac: S1/S2, Irregular Rhythm and Tachycardic
GI: Soft, Nontender, Nondistended and Normal Bowel Sounds
Skin: Warm and Dry
Neuro: Awake, Alert and Oriented (x1)
Psych: Calm; Negative Intact Judgement/Insight
Data Reviewed
-
CT Scan: Report Reviewed by me
Labs: Labs Reviewed by me
[2025-02-15] MEDS: KCL 270 MEQ IV (13:51)
[2025-02-15 15:25] VITALS: BP 138/88
[2025-02-15 16:20] LABS: Glucose - Point of Care 123 mg/dl (70-99)
[2025-02-15] MEDS: COUMADIN PO (16:40)
[2025-02-15 17:29] LABS: Glucose - Point of Care 128 mg/dl (70-99)
[2025-02-15 19:38] VITALS: BP 158/90
[2025-02-15] MEDS: SEROQUEL 25 MG PO (20:41)
[2025-02-15 21:56] LABS: Glucose - Point of Care 123 mg/dl (70-99)
[2025-02-15 23:00] VITALS: BP 126/84
[2025-02-15] MEDS: CARDIZEM 60 MG PO (23:23)
[2025-02-16] VITALS (8 sets, daily range): BP systolic 107–149; BP diastolic 69–95; PULSE 86
[2025-02-16] MEDS: NOVOLOG FLEXPEN-LOW RESISTANCE SC ×2 (08:04→11:51)
[2025-02-16] MEDS: SEROQUEL 25 MG PO ×2 (08:05→20:30)
[2025-02-16] MEDS: CARDIZEM CD 360 MG PO (08:06)
[2025-02-16] MEDS: TIMOPTIC 0.5% OPHTHALMIC SOLUTION OPHTH ×2 (08:07→20:34)
[2025-02-16] MEDS: PROTONIX 40 MG PO (08:07)
[2025-02-16] MEDS: VITAMIN B-12 1000 MCG PO (08:07)
--- NOTE | 2025-02-16 08:48 | W.PN.CD ---
Today's Communication / Plan
-
Start Amiodarone for additional rate control
Impression / Plan
-
I/P: 80M with atrial fibrillation (on warfarin) who presented with neurologic symptoms concerning for CVA versus TIA. INR subtherapeutic on admission.
Primary circulation tender: Adam, physician unknown
Atrial fibrillation, type unknown
-flecainide stopped.
-AFlutter and afib both noted. Still with fast rates at times. Agitation seems to be playing a role here. Has received Haldol and Seroquel
-Diltiazem has been uptitrated to 360 mg QD and 60 mg TID prn. Still with fast HRs.
-Start Amiodarone 400mg BID. Aware of increased stroke risk given subtherapeutic INR on admission but risk>benefit given HR 120-150s sustained
-Oral Anticoagulation: On warfarin, he presented subtherapeutic, but has been therapeutic since.
-Warfarin decreased- needs close monitoring with addition of amio
-[id number]: score at least 5 (age 75 or more, HTN, prior Stroke/TIA)
-ECHO showed normal LVEF.
CVA versus TIA
-Change in mental status
-Transient neurologic symptoms including aphasia facial droop and weakness which have resolved
-CT without acute abnormality
-MRI 02/11 - Mild periventricular white matter leukoaraiosis in the frontal and parietal lobes / Mild to moderate diffuse cerebral and cerebellar volume loss.
-carotids <50% stenosis u/s
-INR subtherapeutic on admission, INR 1.8, now therapeutic
Hypertension with orthostatic hypotension:
-BP seems OK
SUBJECTIVE:
Oriented to person and place. Wondering when he can go home.
Physical Exam
Vital Signs/Labs
Vital Signs
Temp Pulse Resp BP Pulse Ox
97.3 F 126 16 129/73 99
02/16/25 08:38 02/16/25 08:38 02/16/25 08:38 02/16/25 08:38 02/16/25 08:38
PT 29.3 Sec (11.4-14.6) H 02/15/25 07:05
INR 2.73 02/15/25 07:05
APTT 35.0 Sec (23.4-35.0) 02/10/25 05:11
Magnesium 1.7 mg/dl (1.6-2.3) 02/12/25 08:49
Triglycerides 124 mg/dl (10-149) 02/10/25 05:11
LDL Cholesterol, Calc 28 mg/dl 02/10/25 05:11
VLDL Cholesterol, Calc 24 mg/dl (0-30) 02/10/25 05:11
HDL Cholesterol 34 mg/dl 02/10/25 05:11
02/10/25
05:11
[id number] Pept [id number]
Physical Exam
Constitutional: No acute distress and Comfortable
Cardiovascular: Pedal edema is absent and Rhythm/rate is irregular
Respiratory: Respiratory effort normal and Crackles Present
Data Reviewed
-
Date of Service: February 16, 2025
Medical Decision Making: Reviewed Test Results, Independent Historian Assessment, Test Interpretation and Review of Case with other Provider
EKG: Tracing Personally Visualized and interpreted
Echo: Report Reviewed by me
Labs: Labs Reviewed by me
[2025-02-16 09:12] LABS: Hematocrit 35.9 % (39.0-52.0); Hemoglobin 12.2 g/dL (13.0-18.0); Mean Corp Hgb Conc. 34.0 g/dL (33.0-37.0); Mean Corpuscular Volume 80.5 fL (80.0-94.0); Platelet Count 167 10^3/uL (130-400); Red Cell Dist. Width 14.8 % (11.5-14.5)
[2025-02-16 10:03] LABS: INR 2.56; PT 27.9 Sec (11.4-14.6)
[2025-02-16 10:30] LABS: ALT (SGPT) 21 U/L (0-50); AST (SGOT) 28 U/L (17-59); Albumin 3.5 g/dl (3.5-5.0); Alkaline Phosphatase 68 U/L (38-126); Blood Urea Nitrogen 30 mg/dl (9-20); Calcium 8.6 mg/dl (8.4-10.2); Carbon Dioxide 17 mmol/L (22-30); Chloride 108 mmol/L (98-107); Estimated Creatinine Clearance 31 ml/min; Glucose 149 mg/dl (70-99); Magnesium 1.5 mg/dl (1.6-2.3); Potassium 3.5 mmol/L (3.5-5.1); Sodium 139 mmol/L (135-145); Total Protein 6.0 g/dl (6.3-8.2); eGFR 37.12
--- NOTE | 2025-02-16 11:32 | PTCARENOTE ---
Restraints removed from pt. Will continue to monitor the pt and the 1:! for the pt.
[2025-02-16 11:51] LABS: Glucose - Point of Care 140 mg/dl (70-99)
[2025-02-16] MEDS: PACERONE 400 MG PO ×2 (11:53→20:30)
--- NOTE | 2025-02-16 13:52 | W.PN.HOSP.TC ---
Today's Communication/Plan
-
Attempt off restraints and one-to-one; out of bed to chair if possible
Continue Seroquel 25 mg twice daily
Magnesium repletion
Amiodarone initiation
Continue diltiazem
Coumadin, monitor INR
Assessment / Plan
Assessment / Plan
General: Well Developed, Well Nourished, No Apparent Distress, Comfortable and Conversant; Negative Respiratory Distress
HEENT: Normocephalic, Atraumatic, Nose Appears Normal and Ears Appear Normal; Negative Oxygen
Respiratory: Clear to Auscultation and Non Labored Respirations; Negative Accessory Resp Muscle Use
Cardiac: S1/S2, Irregular Rhythm and Tachycardic
GI: Soft, Nontender, Nondistended and Normal Bowel Sounds
Skin: Warm and Dry
Neuro: Awake
Psych: Calm; Negative Intact Judgement/Insight
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
weakness and facial droop that lasted for about 30 minutes and now resolved (NIHSS equals 0).
He was found to be in A-fib with RVR in the emergency department. Patient is chronically on anticoagulation with Coumadin for atrial fibrillation.
He appeared to have had some recent weakness from dehydration and Jardiance was discontinued.
He is currently in the middle of see new PMD and aerospace medicine physician at [facility]. He reports compliance with his medications.
A/P:
# Resolved neurologic deficit, 2/2 CVA vs TIA in setting of atrial fibrillation with subtherapeutic anticoagulation on admission
Cont laboratory monitor
Admission CT head No acute intracranial abnormalities appreciated.
Follow up MRI brain also negative for stroke
Neuro on board
Of note, LDL 28, A1c 6%
Noted positive orthostatic hypotension
PT eval
#Hypokalemia
-monitor and replete
# acute metabolic encephalopathy/ Agitation with behavioral disturbance, likely due to dementia (although not formally diagnosed previously) + Delirium; waxing and waning
No formal diagnosis of dementia per , however has noticed that pt has become more forgetful
repeat CT head and MRI brain without acute infarct.
Restarted diet Pureed, SPL - Pureed diet
Neuro consulted
Continue Seroquel BID -25 mg twice daily, Haldol PRN
Avoid benzodiazepines
# Persistent A-fib with RVR
Cont LAWNMOWER MECHANIC warfarin reduce to 3 mg daily
daily INR, goal 2-3
s/p Cardizem drip
Off LAWNMOWER MECHANIC flecainide (indefinitely) and atenolol per card
Increase Diltiazem XL to 360
Cont Dilt 60mg TID
Start amiodarone
#Hypomagnesemia
� Monitor and replete
Echo unrevealing: Normal biventricular size and systolic function without regional wall motion abnormality. Estimated LVEF 50-55%. No significant valve disease. No prior study available for comparison.
Cardiology on board
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
Monitor
Per , last SCr from December 2024 was at 2.25; SCr from Aug 2024 was at 1.81
Hold LAWNMOWER MECHANIC chlorthalidone, ACEI
Hold LAWNMOWER MECHANIC metformin
Observe off additional IV fluids
# NIDDM
Hold Jardiance and metformin with CKD status
A1c 6%
Sliding scale insulin coverage
# Hypomagnesemia
repleted IV
DVT prophylaxis�on warfarin
CODE STATUS�full code
Anticipated Discharge: 24 - 48 hours
Subjective/Interval History
-
Date of Service: February 16, 2025
Calmer today although still in atrial fibrillation with RVR
Objective Data
-
Labs:
Laboratory Results
02/16/25 02/16/25
07:57 09:34
WBC 9.5
Hgb 12.2 L
Hct 35.9 L
Plt Count 167
PT 27.9 H
INR 2.56
Sodium 139
Potassium 3.5
Chloride 108 H
Carbon Dioxide 17 L
BUN 30 H
Creatinine 1.8 H
Glucose 149 H
Calcium 8.6
Total Bilirubin 1.3
AST 28
ALT 21
Alkaline Phosphatase 68
Vital Signs:
Vital Signs
Temp Pulse Resp BP Pulse Ox
98.3 F 93 18 130/82 99
02/16/25 12:03 02/16/25 12:03 02/16/25 12:03 02/16/25 12:03 02/16/25 12:03
I&O
02/15/25 02/16/25 02/17/25
06:59 06:59 06:59
Intake Total 900 / 900
Output Total 1850 / 1850 480 / 480
Balance -950 / -950 -480 / -480
Review of Systems
-
History Source: Patient
All other systems: Not reviewed unless documented
Physical Exam
-
General: Well Developed, Well Nourished, No Apparent Distress, Comfortable and Conversant; Negative Respiratory Distress
HEENT: Normocephalic, Atraumatic, Nose Appears Normal and Ears Appear Normal; Negative Oxygen
Respiratory: Clear to Auscultation and Non Labored Respirations; Negative Accessory Resp Muscle Use
Cardiac: S1/S2, Irregular Rhythm and Tachycardic
GI: Soft, Nontender, Nondistended and Normal Bowel Sounds
Skin: Warm and Dry
Neuro: Awake, Alert and Oriented (x2)
Psych: Calm; Negative Intact Judgement/Insight
Data Reviewed
-
CT Scan: Report Reviewed by me
Labs: Labs Reviewed by me
[2025-02-16] MEDS: MAGNESIUM SULFATE 100 IV (14:59)
--- NOTE | 2025-02-16 15:01 | CM ---
CM following re: discharge planning.
Reviewed pt's chart, met with pt and pt's spouse at bedside.
Per CM note a plan is for pt to go to [facility] for a short term rehab. CM spoke to [facility] liaison and she brought her concerns regarding pt's behavior and pt receiving Haldol. Per liaison, [facility]
team requested documentation regarding pt's behavior 24 hours of discharge.
IMM reviewed, placed on chart, pt has a copy.
D/C plan: hope for [facility] when pt medically and behaviorally stable.
CM will follow to assist pt with discharge to a preferred SNF.
[2025-02-16] MEDS: TYLENOL 650 MG PO (16:02)
[2025-02-16 17:08] LABS: Glucose - Point of Care 177 mg/dl (70-99)
[2025-02-16] MEDS: NOVOLOG FLEXPEN-LOW RESISTANCE 1 UNITS SC (17:11)
[2025-02-16] MEDS: COUMADIN 3 MG PO (17:17)
[2025-02-16 21:16] LABS: Glucose - Point of Care 184 mg/dl (70-99)
[2025-02-17] VITALS (7 sets, daily range): BP systolic 102–143; BP diastolic 55–94; PULSE 67–116
[2025-02-17 06:22] LABS: Urine Character Clear (Clear)
[2025-02-17 06:58] LABS: Urine Red Blood Cell None Seen /HPF (0-2)
--- NOTE | 2025-02-17 08:04 | W.PN.CD ---
Today's Communication / Plan
-
continue diltiazem, amiodarone, warfarin
monitor INR with addition of amiodarone
overall, rates are better
Impression / Plan
-
I/P: 80M with atrial fibrillation (on warfarin) who presented with neurologic symptoms concerning for CVA versus TIA. INR subtherapeutic on admission.
Primary asbestos hazard abatement worker: Adam, physician unknown
Atrial fibrillation, type unknown, likely persistent
-flecainide stopped this admission
-AFlutter and afib both noted. RVR--Agitation seems to be playing a role here. Has received Haldol and Seroquel
-Diltiazem has been uptitrated to 360 mg QD
-Started Amiodarone 400mg BID. Aware of increased stroke risk given subtherapeutic INR on admission but risk>benefit given HR 120-150s sustained
-400mg bid for 2 weeks (to end 03/02), then 200mg daily
-Oral Anticoagulation: On warfarin, he presented subtherapeutic, but has been therapeutic since.
-Warfarin decreased- needs close monitoring with addition of amio
-[id number]: score at least 5 (age 75 or more, HTN, prior Stroke/TIA)
-ECHO showed normal LVEF.
CVA versus TIA
-Change in mental status
-Transient neurologic symptoms including aphasia facial droop and weakness which have resolved
-CT without acute abnormality
-MRI 02/11 - Mild periventricular white matter leukoaraiosis in the frontal and parietal lobes / Mild to moderate diffuse cerebral and cerebellar volume loss.
-carotids <50% stenosis u/s
-INR subtherapeutic on admission, INR 1.8, now therapeutic
Hypertension with orthostatic hypotension:
-BP seems stable overall
SUBJECTIVE:
Oriented to person and place. Wondering when he can go home.
Physical Exam
Vital Signs/Labs
Vital Signs
Temp Pulse Resp BP Pulse Ox
98.0 F 95 16 143/81 96
02/17/25 03:31 02/17/25 03:31 02/17/25 03:31 02/17/25 03:31 02/17/25 03:31
PT 27.9 Sec (11.4-14.6) H 02/16/25 09:34
INR 2.56 02/16/25 09:34
APTT 35.0 Sec (23.4-35.0) 02/10/25 05:11
Magnesium 1.5 mg/dl (1.6-2.3) L 02/16/25 09:34
Triglycerides 124 mg/dl (10-149) 02/10/25 05:11
LDL Cholesterol, Calc 28 mg/dl 02/10/25 05:11
VLDL Cholesterol, Calc 24 mg/dl (0-30) 02/10/25 05:11
HDL Cholesterol 34 mg/dl 02/10/25 05:11
02/10/25
05:11
[id number] Pept [id number]
Physical Exam
Constitutional: No acute distress
EENT: Moist mucous membranes
Cardiovascular: Pedal edema is absent, JVD pressure is normal, Systolic murmur absent and Rhythm/rate is irregular
Respiratory: Respiratory effort normal and Lungs clear to auscul.
Neuro/Psych: Alert
Data Reviewed
-
Date of Service: February 17, 2025
EKG: Other (Tele: A fib, avg 80s)
Labs: Labs Reviewed by me
[2025-02-17 08:15] LABS: Glucose - Point of Care 181 mg/dl (70-99)
[2025-02-17] MEDS: CARDIZEM CD 360 MG PO (08:33)
[2025-02-17] MEDS: TIMOPTIC 0.5% OPHTHALMIC SOLUTION 1 DROP OPHTH (08:34)
[2025-02-17] MEDS: PROTONIX 40 MG PO (08:34)
[2025-02-17] MEDS: PACERONE 400 MG PO ×2 (08:34→19:49)
[2025-02-17] MEDS: VITAMIN B-12 1000 MCG PO (08:34)
[2025-02-17] MEDS: SEROQUEL 25 MG PO ×2 (08:34→19:50)
[2025-02-17 08:55] LABS: Hematocrit 34.7 % (39.0-52.0); Hemoglobin 11.6 g/dL (13.0-18.0); Mean Corp Hgb Conc. 33.4 g/dL (33.0-37.0); Mean Corpuscular Volume 81.6 fL (80.0-94.0); Platelet Count 202 10^3/uL (130-400); Red Cell Dist. Width 14.6 % (11.5-14.5)
[2025-02-17] MEDS: NOVOLOG FLEXPEN-LOW RESISTANCE 1 UNITS SC (09:07)
[2025-02-17 10:04] LABS: ALT (SGPT) 27 U/L (0-50); AST (SGOT) 32 U/L (17-59); Albumin 3.6 g/dl (3.5-5.0); Alkaline Phosphatase 82 U/L (38-126); Blood Urea Nitrogen 35 mg/dl (9-20); Calcium 8.4 mg/dl (8.4-10.2); Carbon Dioxide 19 mmol/L (22-30); Chloride 103 mmol/L (98-107); Estimated Creatinine Clearance 26 ml/min; Glucose 168 mg/dl (70-99); Magnesium 2.4 mg/dl (1.6-2.3); Potassium 3.7 mmol/L (3.5-5.1); Sodium 135 mmol/L (135-145); Total Protein 6.4 g/dl (6.3-8.2); eGFR 30.85
[2025-02-17] MEDS: TYLENOL 650 MG PO ×2 (10:51→17:06)
[2025-02-17 12:02] LABS: Glucose - Point of Care 277 mg/dl (70-99)
[2025-02-17] MEDS: NOVOLOG FLEXPEN-LOW RESISTANCE 3 UNITS SC (12:17)
--- NOTE | 2025-02-17 13:44 | CM ---
CM reviewed chart, patient and seen bedside. CM discussed [facility] unable to accept at this time, additional referrals placed to [facility], [facility], and [facility]. Patient will require insurance auth once bed found. CM will
continue to follow for all discharge planning needs.
Plan; SNF pending accepting facility, will require insurance auth
--- NOTE | 2025-02-17 14:11 | W.PN.HOSP.TC ---
Today's Communication/Plan
-
Continue amiodarone, diltiazem
Seroquel 25 mg twice daily
DC ready, manager rn case aware
Assessment / Plan
Assessment / Plan
General: Well Developed, Well Nourished, No Apparent Distress, Comfortable and Conversant; Negative Respiratory Distress
HEENT: Normocephalic, Atraumatic, Nose Appears Normal and Ears Appear Normal; Negative Oxygen
Respiratory: Clear to Auscultation and Non Labored Respirations; Negative Accessory Resp Muscle Use
Cardiac: S1/S2, Irregular Rhythm and Tachycardic
GI: Soft, Nontender, Nondistended and Normal Bowel Sounds
Skin: Warm and Dry
Neuro: Awake
Psych: Calm; Negative Intact Judgement/Insight
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
weakness and facial droop that lasted for about 30 minutes and now resolved (NIHSS equals 0).
He was found to be in A-fib with RVR in the emergency department. Patient is chronically on anticoagulation with Coumadin for atrial fibrillation.
He appeared to have had some recent weakness from dehydration and Jardiance was discontinued.
He is currently in the middle of see new PMD and document reviewer at [facility]. He reports compliance with his medications.
A/P:
# Resolved neurologic deficit, 2/2 CVA vs TIA in setting of atrial fibrillation with subtherapeutic anticoagulation on admission
Cont monitoring specialist
Admission CT head No acute intracranial abnormalities appreciated.
Follow up MRI brain also negative for stroke
Neuro on board
Of note, LDL 28, A1c 6%
Noted positive orthostatic hypotension
PT eval
#Hypokalemia
-monitor and replete
# acute metabolic encephalopathy/ Agitation with behavioral disturbance, likely due to dementia (although not formally diagnosed previously) + Delirium; waxing and waning
No formal diagnosis of dementia per , however has noticed that pt has become more forgetful
repeat CT head and MRI brain without acute infarct.
Restarted diet Pureed, SPL - Pureed diet
Neuro consulted
Continue Seroquel BID -25 mg twice daily, Haldol PRN
Avoid benzodiazepines
Off one-to-one and restraints as of 02/16/2025
# Persistent A-fib with RVR
Cont NUTRITION TECHNICIAN warfarin reduce to 3 mg daily
daily INR, goal 2-3
s/p Cardizem drip
Off NUTRITION TECHNICIAN flecainide (indefinitely) and atenolol per card
Increase Diltiazem XL to 360
Cont Dilt 60mg TID
Continue amiodarone
#Hypomagnesemia
� Monitor and replete
Echo unrevealing: Normal biventricular size and systolic function without regional wall motion abnormality. Estimated LVEF 50-55%. No significant valve disease. No prior study available for comparison.
Cardiology on board
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
Monitor
Per , last SCr from December 2024 was at 2.25; SCr from Aug 2024 was at 1.81
Hold NUTRITION TECHNICIAN chlorthalidone, ACEI
Hold NUTRITION TECHNICIAN metformin
Observe off additional IV fluids
# NIDDM
Hold Jardiance and metformin with CKD status
A1c 6%
Sliding scale insulin coverage
# Hypomagnesemia
repleted IV
DVT prophylaxis�on warfarin
CODE STATUS�full code
Anticipated Discharge: Within 24 hours
Subjective/Interval History
-
Date of Service: February 17, 2025
Mental status has remained improved for the last 2 days
Objective Data
-
Labs:
Laboratory Results
02/17/25
07:59
WBC 10.2
Hgb 11.6 L
Hct 34.7 L
Plt Count 202 D
Sodium 135
Potassium 3.7
Chloride 103
Carbon Dioxide 19 L
BUN 35 H
Creatinine 2.1 H
Glucose 168 H
Calcium 8.4
Total Bilirubin 1.2
AST 32
ALT 27
Alkaline Phosphatase 82
Vital Signs:
Vital Signs
Temp Pulse Resp BP Pulse Ox
98.3 F 95 18 143/81 97
02/17/25 08:59 02/17/25 03:31 02/17/25 08:59 02/17/25 03:31 02/17/25 08:59
I&O
02/16/25 02/17/25 02/18/25
06:59 06:59 06:59
Intake Total 1000 / 1000
Output Total 480 / 480 650 / 650
Balance -480 / -480 350 / 350
Review of Systems
-
History Source: Patient
All other systems: Not reviewed unless documented
Data Reviewed
-
CT Scan: Report Reviewed by me
Labs: Labs Reviewed by me
[2025-02-17 16:46] LABS: Glucose - Point of Care 127 mg/dl (70-99)
[2025-02-17] MEDS: NOVOLOG FLEXPEN-LOW RESISTANCE SC (16:56)
[2025-02-17] MEDS: COUMADIN 3 MG PO (17:06)
[2025-02-17] MEDS: TIMOPTIC 0.5% OPHTHALMIC SOLUTION OPHTH (19:49)
[2025-02-17 21:19] LABS: Glucose - Point of Care 127 mg/dl (70-99)
[2025-02-18 07:40] VITALS: BP 142/80
[2025-02-18 07:49] LABS: Glucose - Point of Care 133 mg/dl (70-99)
--- NOTE | 2025-02-18 07:50 | W.PN.CD ---
Today's Communication / Plan
-
Amiodarone 400mg bid for 2 weeks (to end 03/02), then 200mg daily
Continue Diltiazem and Warfarin. If HRs low at rehab, can decrease diltiazem
He has follow-up scheduled with [facility] next
Impression / Plan
-
I/P: 80M with atrial fibrillation (on warfarin) who presented with neurologic symptoms concerning for CVA versus TIA. INR subtherapeutic on admission.
Primary museum curator: [facility], physician unknown
Atrial fibrillation, type unknown, likely persistent
-flecainide stopped this admission given advanced age (likely has some CAD)
-AFlutter and afib both noted. RVR--Agitation seems to be playing a role here. Has received Haldol and Seroquel
-Diltiazem has been uptitrated to 360 mg QD
-Started Amiodarone 400mg BID on 02/16. Aware of increased stroke risk given subtherapeutic INR on admission but risk>benefit given HR 120-150s sustained
-400mg bid for 2 weeks (to end 03/02), then 200mg daily
-Oral Anticoagulation: On warfarin, he presented subtherapeutic, but has been therapeutic since.
-Warfarin decreased- needs close monitoring with addition of amio
-[id number]: score at least 5 (age 75 or more, HTN, prior Stroke/TIA)
-ECHO showed normal LVEF.
CVA versus TIA
-Change in mental status
-Transient neurologic symptoms including aphasia facial droop and weakness which have resolved
-CT without acute abnormality
-MRI 02/11 - Mild periventricular white matter leukoaraiosis in the frontal and parietal lobes / Mild to moderate diffuse cerebral and cerebellar volume loss.
-carotids <50% stenosis u/s
-INR subtherapeutic on admission, INR 1.8, now therapeutic
Hypertension with orthostatic hypotension:
-BP seems stable overall
SUBJECTIVE:
Oriented to person and place. Wondering when he can go home.
Physical Exam
Vital Signs/Labs
Vital Signs
Temp Pulse Resp BP Pulse Ox
97.7 F 99 16 142/94 95
02/17/25 23:48 02/17/25 23:48 02/17/25 23:48 02/17/25 23:48 02/17/25 23:48
PT 27.9 Sec (11.4-14.6) H 02/16/25 09:34
INR 2.56 02/16/25 09:34
APTT 35.0 Sec (23.4-35.0) 02/10/25 05:11
Magnesium 2.4 mg/dl (1.6-2.3) H 02/17/25 07:59
Triglycerides 124 mg/dl (10-149) 02/10/25 05:11
LDL Cholesterol, Calc 28 mg/dl 02/10/25 05:11
VLDL Cholesterol, Calc 24 mg/dl (0-30) 02/10/25 05:11
HDL Cholesterol 34 mg/dl 02/10/25 05:11
02/10/25
05:11
[id number] Pept [id number]
Physical Exam
Constitutional: No acute distress and Comfortable
Cardiovascular: Pedal edema is absent, Rhythm/rate is irregular, S1S2 is normal and Murmur/rub/gallop absent
Respiratory: Respiratory effort normal and Lungs clear to auscul.
Data Reviewed
-
Date of Service: February 18, 2025
Medical Decision Making: Reviewed Test Results, Independent Historian Assessment, Test Interpretation and Review of Case with other Provider
EKG: Tracing Personally Visualized and interpreted
Echo: Report Reviewed by me
Labs: Labs Reviewed by me
[2025-02-18 08:12] LABS: Hematocrit 32.7 % (39.0-52.0); Hemoglobin 10.8 g/dL (13.0-18.0); Mean Corp Hgb Conc. 33.0 g/dL (33.0-37.0); Mean Corpuscular Volume 82.6 fL (80.0-94.0); Platelet Count 197 10^3/uL (130-400); Red Cell Dist. Width 14.3 % (11.5-14.5)
[2025-02-18] MEDS: NOVOLOG FLEXPEN-LOW RESISTANCE SC ×3 (08:38→16:22)
[2025-02-18 08:44] LABS: ALT (SGPT) 25 U/L (0-50); AST (SGOT) 24 U/L (17-59); Albumin 3.2 g/dl (3.5-5.0); Alkaline Phosphatase 79 U/L (38-126); Blood Urea Nitrogen 43 mg/dl (9-20); Calcium 8.4 mg/dl (8.4-10.2); Carbon Dioxide 22 mmol/L (22-30); Chloride 102 mmol/L (98-107); Estimated Creatinine Clearance 25 ml/min; Glucose 134 mg/dl (70-99); Potassium 3.6 mmol/L (3.5-5.1); Sodium 134 mmol/L (135-145); Total Protein 6.0 g/dl (6.3-8.2); eGFR 29.17
[2025-02-18 10:00] VITALS: BP 105/61; BP 121/83; BP 142/77; PULSE 79; PULSE 82; PULSE 85
[2025-02-18] MEDS: PACERONE 400 MG PO ×2 (10:01→20:35)
[2025-02-18] MEDS: CARDIZEM CD 360 MG PO (10:02)
[2025-02-18] MEDS: PROTONIX 40 MG PO (10:02)
[2025-02-18] MEDS: VITAMIN B-12 1000 MCG PO (10:03)
[2025-02-18] MEDS: SEROQUEL 25 MG PO ×2 (10:03→20:34)
[2025-02-18] MEDS: TIMOPTIC 0.5% OPHTHALMIC SOLUTION 1 DROP OPHTH (10:03)
--- NOTE | 2025-02-18 11:16 | CM ---
CM reviewed chart, spoke with liaison, Cristine, from [facility], able to offer patient a bed. Auth submitted through [employer], faxed to [phone], reference number [id number]. Update to , Mine, agreeable to [facility]. Patient will require ambulance
transport, forms on chart. CM will continue to follow for all discharge planning needs.
Plan; [facility] pending auth, submitted to [employer], will need ambulance transport
[2025-02-18 11:41] LABS: Glucose - Point of Care 137 mg/dl (70-99)
[2025-02-18 12:12] VITALS: BP 122/68
--- NOTE | 2025-02-18 14:51 | W.PN.HOSP.TC ---
Today's Communication/Plan
-
Continue amiodarone, diltiazem
Seroquel 25 mg twice daily
DC ready, telephonic nurse case manager aware
Assessment / Plan
Assessment / Plan
General: Well Developed, Well Nourished, No Apparent Distress, Comfortable and Conversant; Negative Respiratory Distress
HEENT: Normocephalic, Atraumatic, Nose Appears Normal and Ears Appear Normal; Negative Oxygen
Respiratory: Clear to Auscultation and Non Labored Respirations; Negative Accessory Resp Muscle Use
Cardiac: S1/S2, Irregular Rhythm and Tachycardic
GI: Soft, Nontender, Nondistended and Normal Bowel Sounds
Skin: Warm and Dry
Neuro: Awake
Psych: Calm; Negative Intact Judgement/Insight
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
weakness and facial droop that lasted for about 30 minutes and now resolved (NIHSS equals 0).
He was found to be in A-fib with RVR in the emergency department. Patient is chronically on anticoagulation with Coumadin for atrial fibrillation.
He appeared to have had some recent weakness from dehydration and Jardiance was discontinued.
He is currently in the middle of see new PMD and road production general manager at [facility]. He reports compliance with his medications.
A/P:
# Resolved neurologic deficit, 2/2 CVA vs TIA in setting of atrial fibrillation with subtherapeutic anticoagulation on admission
Cont cafeteria monitor
Admission CT head No acute intracranial abnormalities appreciated.
Follow up MRI brain also negative for stroke
Neuro on board
Of note, LDL 28, A1c 6%
Noted positive orthostatic hypotension
#Hypokalemia
-monitor and replete
# acute metabolic encephalopathy/ Agitation with behavioral disturbance, likely due to dementia (although not formally diagnosed previously) + Delirium; waxing and waning
No formal diagnosis of dementia per , however has noticed that pt has become more forgetful
repeat CT head and MRI brain without acute infarct.
Restarted diet Pureed, SPL - Pureed diet
Neuro consulted
Continue Seroquel BID -25 mg twice daily, Haldol PRN
Avoid benzodiazepines
Off one-to-one and restraints as of 02/16/2025
# Persistent A-fib with RVR
Cont LEMON PICKER warfarin reduce to 3 mg daily
daily INR, goal 2-3
s/p Cardizem drip
Off LEMON PICKER flecainide (indefinitely) and atenolol per card
Increase Diltiazem XL to 360
Cont Dilt 60mg TID
Continue amiodarone: Amiodarone 400mg bid for 2 weeks (to end 03/02), then 200mg daily
follow-up scheduled with [facility] next
#Hypomagnesemia
� Monitor and replete
Echo unrevealing: Normal biventricular size and systolic function without regional wall motion abnormality. Estimated LVEF 50-55%. No significant valve disease. No prior study available for comparison.
Cardiology on board
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
Monitor
Per , last SCr from December 2024 was at 2.25; SCr from Aug 2024 was at 1.81
Hold LEMON PICKER chlorthalidone, ACEI
Hold LEMON PICKER metformin
Observe off additional IV fluids
Hyponatremia
-mild
-monitor
# NIDDM
Hold Jardiance and metformin with CKD status
A1c 6%
Sliding scale insulin coverage
# Hypomagnesemia
repleted IV
DVT prophylaxis�on warfarin
CODE STATUS�full code
Anticipated Discharge: Within 24 hours
Subjective/Interval History
-
Date of Service: February 18, 2025
no acute events
Objective Data
-
Labs:
Laboratory Results
02/18/25
07:55
WBC 9.2
Hgb 10.8 L
Hct 32.7 L
Plt Count 197
Sodium 134 L
Potassium 3.6
Chloride 102
Carbon Dioxide 22
BUN 43 H
Creatinine 2.2 H
Glucose 134 H
Calcium 8.4
Total Bilirubin 1.0
AST 24
ALT 25
Alkaline Phosphatase 79
Vital Signs:
Vital Signs
Temp Pulse Resp BP Pulse Ox
98 F 77 16 122/68 97
02/18/25 12:12 02/18/25 12:12 02/18/25 12:12 02/18/25 12:12 02/18/25 12:12
I&O
02/17/25 02/18/25 02/19/25
06:59 06:59 06:59
Intake Total 1000 / 1000 660 / 660
Output Total 650 / 650 650 / 650
Balance 350 / 350 10 / 10
Review of Systems
-
History Source: Patient
All other systems: Not reviewed unless documented
Physical Exam
-
General: Well Developed, Well Nourished, No Apparent Distress, Comfortable and Conversant; Negative Respiratory Distress
HEENT: Normocephalic, Atraumatic, Nose Appears Normal and Ears Appear Normal; Negative Oxygen
Respiratory: Clear to Auscultation and Non Labored Respirations; Negative Accessory Resp Muscle Use
Cardiac: S1/S2, Irregular Rhythm and Tachycardic
GI: Soft, Nontender, Nondistended and Normal Bowel Sounds
Skin: Warm and Dry
Neuro: Awake, Alert and Oriented (x2)
Psych: Calm; Negative Intact Judgement/Insight
Data Reviewed
-
CT Scan: Report Reviewed by me
Labs: Labs Reviewed by me
[2025-02-18 15:33] VITALS: BP 129/72
[2025-02-18 16:12] LABS: Glucose - Point of Care 110 mg/dl (70-99)
[2025-02-18 19:18] VITALS: BP 126/73
[2025-02-18] MEDS: COUMADIN 3 MG PO (20:34)
[2025-02-18] MEDS: TIMOPTIC 0.5% OPHTHALMIC SOLUTION OPHTH ×2 (20:35→20:47)
[2025-02-18 20:50] LABS: Glucose - Point of Care 197 mg/dl (70-99)
[2025-02-18 23:30] VITALS: BP 124/88
[2025-02-19] VITALS (7 sets, daily range): BP systolic 109–126; BP diastolic 48–82; PULSE 55–60
[2025-02-19] MEDS: TYLENOL 650 MG PO (01:05)
[2025-02-19] MEDS: HALDOL 1 MG IV (02:32)
--- NOTE | 2025-02-19 02:46 | W.PN.UPDATE ---
Update Note
Progress Note Update
Code Purple
Patient is aggressive trying to hit and kick the staff. PRN Haldol given and soft restraints applied for the patient and staff safety.
--- NOTE | 2025-02-19 02:50 | PTCARENOTE ---
Patient was oriented x2-3 in the beginning of the shift, but pleasantly forgetful. Patient became aggressive towards staff by hitting, kicking, and name calling. Staff tried to redirect patient; however, he was not cooperative [place] RN assisted patient in calling his to help comfort him; however, patient was still aggressive to staff. Code purple was called, and security assisted in moving the patient up in the bed. Nurse practitioner added order for soft
wrist restraints. B/L soft wrist restraints applied. RN gave IV Haldol, see MAR for administration.
[2025-02-19 06:59] LABS: Glucose - Point of Care 123 mg/dl (70-99)
[2025-02-19] MEDS: CARDIZEM CD 360 MG PO (07:29)
[2025-02-19] MEDS: PACERONE 400 MG PO ×2 (07:30→21:06)
[2025-02-19] MEDS: VITAMIN B-12 1000 MCG PO (07:30)
[2025-02-19] MEDS: PROTONIX 40 MG PO (07:30)
[2025-02-19] MEDS: SEROQUEL 25 MG PO (07:30)
[2025-02-19] MEDS: TIMOPTIC 0.5% OPHTHALMIC SOLUTION 1 DROP OPHTH ×2 (07:31→21:07)
[2025-02-19] MEDS: NOVOLOG FLEXPEN-LOW RESISTANCE SC ×2 (07:31→17:10)
[2025-02-19 07:56] LABS: Hematocrit 32.8 % (39.0-52.0); Hemoglobin 10.9 g/dL (13.0-18.0); Mean Corp Hgb Conc. 33.2 g/dL (33.0-37.0); Mean Corpuscular Volume 81.8 fL (80.0-94.0); Platelet Count 206 10^3/uL (130-400); Red Cell Dist. Width 14.3 % (11.5-14.5)
[2025-02-19 08:00] LABS: INR 2.47; PT 26.8 Sec (11.4-14.6)
[2025-02-19 08:14] LABS: ALT (SGPT) 24 U/L (0-50); AST (SGOT) 25 U/L (17-59); Albumin 3.1 g/dl (3.5-5.0); Alkaline Phosphatase 86 U/L (38-126); Blood Urea Nitrogen 40 mg/dl (9-20); Calcium 8.6 mg/dl (8.4-10.2); Carbon Dioxide 23 mmol/L (22-30); Chloride 103 mmol/L (98-107); Estimated Creatinine Clearance 26 ml/min; Glucose 117 mg/dl (70-99); Potassium 3.3 mmol/L (3.5-5.1); Sodium 135 mmol/L (135-145); Total Protein 5.7 g/dl (6.3-8.2); eGFR 30.85
[2025-02-19] MEDS: MIRALAX PO (08:37)
[2025-02-19] MEDS: SENOKOT-S PO (08:37)
--- NOTE | 2025-02-19 08:50 | CM ---
CM received auth from [facility], auth ID [id number], ref# [id number], approved 02/18-02/22, updates to Nancy Pacheco [phone]. Patient back on restraints, on 1:1. Update to liaison at [facility]. CM will continue to follow for all discharge planning needs.
Plan; auth approved to [facility], patient on restraints
[2025-02-19] MEDS: KCL ELIXIR 40 MEQ PO (09:40)
--- NOTE | 2025-02-19 09:44 | PTCARENOTE ---
Pt answering all orientation questions appropriately this morning. Calm behavior. Very sleepy but arousable. Restraints removed at 0945. Pt remains calm at this time. Starting to eat breakfast. 1:1 observation continued at this point. Overnight
events and care plan discussed with Dr Ruth.
[2025-02-19] MEDS: SENOKOT-S 1 TABLET PO (10:48)
[2025-02-19] MEDS: MIRALAX 17 GRAMS PO (10:49)
[2025-02-19 11:17] LABS: Glucose - Point of Care 291 mg/dl (70-99)
[2025-02-19] MEDS: NOVOLOG FLEXPEN-LOW RESISTANCE 3 UNITS SC (11:21)
--- NOTE | 2025-02-19 12:40 | W.PN.HOSP.TC ---
Today's Communication/Plan
-
increase Seroquel while monitoring QTc closely; should be attempted to be weaned outpatient
Assessment / Plan
Assessment / Plan
General: Well Developed, Well Nourished, No Apparent Distress, Comfortable and Conversant; Negative Respiratory Distress
HEENT: Normocephalic, Atraumatic, Nose Appears Normal and Ears Appear Normal; Negative Oxygen
Respiratory: Clear to Auscultation and Non Labored Respirations; Negative Accessory Resp Muscle Use
Cardiac: S1/S2, Irregular Rhythm and Tachycardic
GI: Soft, Nontender, Nondistended and Normal Bowel Sounds
Skin: Warm and Dry
Neuro: Awake
Psych: Calm; Negative Intact Judgement/Insight
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
weakness and facial droop that lasted for about 30 minutes and now resolved (NIHSS equals 0).
He was found to be in A-fib with RVR in the emergency department. Patient is chronically on anticoagulation with Coumadin for atrial fibrillation.
He appeared to have had some recent weakness from dehydration and Jardiance was discontinued.
He is currently in the middle of see new PMD and structural analysis engineer at [facility]. He reports compliance with his medications.
A/P:
# Resolved neurologic deficit, 2/2 CVA vs TIA in setting of atrial fibrillation with subtherapeutic anticoagulation on admission
Cont court monitor
Admission CT head No acute intracranial abnormalities appreciated.
Follow up MRI brain also negative for stroke
Neuro on board
Of note, LDL 28, A1c 6%
Noted positive orthostatic hypotension
#Hypokalemia
-monitor and replete
# acute metabolic encephalopathy/ Agitation with behavioral disturbance, likely due to dementia (although not formally diagnosed previously) + Delirium; waxing and waning
No formal diagnosis of dementia per , however has noticed that pt has become more forgetful
repeat CT head and MRI brain without acute infarct.
Restarted diet Pureed, SPL - Pureed diet
Neuro consulted
Continue Seroquel BID -25 mg in AM; 37.5 PM;, Haldol PRN - monitor QTc now that on seroquel
Avoid benzodiazepines
Off one-to-one and restraints as of 02/16/2025
# Persistent A-fib with RVR
Cont DIGITAL RESEARCH ANALYST warfarin reduce to 3 mg daily
daily INR, goal 2-3
s/p Cardizem drip
Off DIGITAL RESEARCH ANALYST flecainide (indefinitely) and atenolol per card
Increase Diltiazem XL to 360
Cont Dilt 60mg TID
Continue amiodarone: Amiodarone 400mg bid for 2 weeks (to end 03/02), then 200mg daily
follow-up scheduled with [facility] next
Echo unrevealing: Normal biventricular size and systolic function without regional wall motion abnormality. Estimated LVEF 50-55%. No significant valve disease. No prior study available for comparison.
Cardiology on board
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
Monitor
Per , last SCr from December 2024 was at 2.25; SCr from Aug 2024 was at 1.81
Hold DIGITAL RESEARCH ANALYST chlorthalidone, ACEI
Hold DIGITAL RESEARCH ANALYST metformin
Observe off additional IV fluids
Hyponatremia
-mild
-monitor
# NIDDM
Hold Jardiance and metformin with CKD status
A1c 6%
Sliding scale insulin coverage
# Hypomagnesemia
#Hypokalemia
Monitor and replete
DVT prophylaxis�on warfarin
CODE STATUS�full code
Anticipated Discharge: 24 - 48 hours
Subjective/Interval History
-
Date of Service: February 19, 2025
Agitated overnight, required to be restrained; alert and oriented x 3 this morning
Objective Data
-
Labs:
Laboratory Results
02/19/25
07:20
WBC 7.2
Hgb 10.9 L
Hct 32.8 L
Plt Count 206
PT 26.8 H
INR 2.47
Sodium 135
Potassium 3.3 L
Chloride 103
Carbon Dioxide 23
BUN 40 H
Creatinine 2.1 H
Glucose 117 H
Calcium 8.6
Total Bilirubin 0.8
AST 25
ALT 24
Alkaline Phosphatase 86
Vital Signs:
Vital Signs
Temp Pulse Resp BP Pulse Ox
97.7 F 60 16 109/59 97
02/19/25 10:51 02/19/25 10:51 02/19/25 10:51 02/19/25 10:51 02/19/25 10:51
I&O
02/18/25 02/19/25 02/20/25
06:59 06:59 06:59
Intake Total 660 / 660 500 / 500 600 / 600
Output Total 650 / 650 600 / 600
Balance 10 / 10 -100 / -100 600 / 600
Review of Systems
-
History Source: Patient
All other systems: Not reviewed unless documented
Physical Exam
-
General: Well Developed, Well Nourished, No Apparent Distress, Comfortable and Conversant; Negative Respiratory Distress
HEENT: Normocephalic, Atraumatic, Nose Appears Normal and Ears Appear Normal; Negative Oxygen
Respiratory: Clear to Auscultation and Non Labored Respirations; Negative Accessory Resp Muscle Use
Cardiac: S1/S2, Irregular Rhythm and Tachycardic
GI: Soft, Nontender, Nondistended and Normal Bowel Sounds
Skin: Warm and Dry
Neuro: Awake, Alert, Oriented and AO x 3
Psych: Calm; Negative Intact Judgement/Insight
Data Reviewed
-
CT Scan: Report Reviewed by me
Labs: Labs Reviewed by me
[2025-02-19] MEDS: DULCOLAX 10 MG RECTAL (13:25)
[2025-02-19 17:05] LABS: Glucose - Point of Care 137 mg/dl (70-99)
[2025-02-19] MEDS: COUMADIN 3 MG PO (17:34)
[2025-02-19] MEDS: SEROQUEL 37.5 MG PO (21:06)
[2025-02-20 03:00] VITALS: BP 137/77
[2025-02-20 07:00] VITALS: BP 133/82
[2025-02-20 07:33] LABS: Hematocrit 32.1 % (39.0-52.0); Hemoglobin 10.7 g/dL (13.0-18.0); Mean Corp Hgb Conc. 33.3 g/dL (33.0-37.0); Mean Corpuscular Volume 83.4 fL (80.0-94.0); Platelet Count 221 10^3/uL (130-400); Red Cell Dist. Width 14.3 % (11.5-14.5)
[2025-02-20 07:46] LABS: Glucose - Point of Care 134 mg/dl (70-99)
[2025-02-20 07:57] LABS: ALT (SGPT) 30 U/L (0-50); AST (SGOT) 32 U/L (17-59); Albumin 3.0 g/dl (3.5-5.0); Alkaline Phosphatase 106 U/L (38-126); Blood Urea Nitrogen 41 mg/dl (9-20); Calcium 8.5 mg/dl (8.4-10.2); Carbon Dioxide 22 mmol/L (22-30); Chloride 105 mmol/L (98-107); Estimated Creatinine Clearance 25 ml/min; Glucose 130 mg/dl (70-99); Potassium 3.9 mmol/L (3.5-5.1); Sodium 136 mmol/L (135-145); Total Protein 5.6 g/dl (6.3-8.2); eGFR 29.17
[2025-02-20] MEDS: NOVOLOG FLEXPEN-LOW RESISTANCE SC (08:02)
[2025-02-20] MEDS: PACERONE 400 MG PO ×2 (08:51→19:30)
[2025-02-20] MEDS: CARDIZEM CD 360 MG PO (08:51)
[2025-02-20] MEDS: VITAMIN B-12 1000 MCG PO (08:52)
[2025-02-20] MEDS: SEROQUEL 25 MG PO (08:52)
[2025-02-20] MEDS: PROTONIX 40 MG PO (08:52)
[2025-02-20] MEDS: TIMOPTIC 0.5% OPHTHALMIC SOLUTION 1 DROP OPHTH ×2 (08:54→19:31)
[2025-02-20 11:00] VITALS: BP 132/75
[2025-02-20 11:50] LABS: Glucose - Point of Care 164 mg/dl (70-99)
[2025-02-20] MEDS: NOVOLOG FLEXPEN-LOW RESISTANCE 1 UNITS SC (12:28)
--- NOTE | 2025-02-20 13:45 | W.PN.HOSP.TC ---
Today's Communication/Plan
-
monitor qtc
dc ready, cm aware
Assessment / Plan
Assessment / Plan
General: Well Developed, Well Nourished, No Apparent Distress, Comfortable and Conversant; Negative Respiratory Distress
HEENT: Normocephalic, Atraumatic, Nose Appears Normal and Ears Appear Normal; Negative Oxygen
Respiratory: Clear to Auscultation and Non Labored Respirations; Negative Accessory Resp Muscle Use
Cardiac: S1/S2, Irregular Rhythm and Tachycardic
GI: Soft, Nontender, Nondistended and Normal Bowel Sounds
Skin: Warm and Dry
Neuro: Awake
Psych: Calm; Negative Intact Judgement/Insight
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
weakness and facial droop that lasted for about 30 minutes and now resolved (NIHSS equals 0).
He was found to be in A-fib with RVR in the emergency department. Patient is chronically on anticoagulation with Coumadin for atrial fibrillation.
He appeared to have had some recent weakness from dehydration and Jardiance was discontinued.
He is currently in the middle of see new PMD and mattress filling machine tender at [facility]. He reports compliance with his medications.
A/P:
# Resolved neurologic deficit, 2/2 CVA vs TIA in setting of atrial fibrillation with subtherapeutic anticoagulation on admission
Cont gas meter installer helper
Admission CT head No acute intracranial abnormalities appreciated.
Follow up MRI brain also negative for stroke
Neuro on board
Of note, LDL 28, A1c 6%
Noted positive orthostatic hypotension
#Hypokalemia
-monitor and replete
# acute metabolic encephalopathy/ Agitation with behavioral disturbance, likely due to dementia (although not formally diagnosed previously) + Delirium; waxing and waning
No formal diagnosis of dementia per , however has noticed that pt has become more forgetful
repeat CT head and MRI brain without acute infarct.
Restarted diet Pureed, SPL - Pureed diet
Neuro consulted
Continue Seroquel BID -25 mg in AM; 37.5 PM;, Haldol PRN - monitor QTc now that on seroquel
Avoid benzodiazepines
# Persistent A-fib with RVR
Cont HAND BRAILLE TRANSCRIBER warfarin reduce to 3 mg daily
daily INR, goal 2-3
s/p Cardizem drip
Off HAND BRAILLE TRANSCRIBER flecainide (indefinitely) and atenolol per card
Increase Diltiazem XL to 360
Cont Dilt 60mg TID
Continue amiodarone: Amiodarone 400mg bid for 2 weeks (to end 03/02), then 200mg daily (Monitor QTc as alrady on Seroquel prior to Initiation)
follow-up scheduled with [place] [facility] next
Echo unrevealing: Normal biventricular size and systolic function without regional wall motion abnormality. Estimated LVEF 50-55%. No significant valve disease. No prior study available for comparison.
Cardiology on board
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
Monitor
Per , last SCr from December 2024 was at 2.25; SCr from Aug 2024 was at 1.81
Hold HAND BRAILLE TRANSCRIBER chlorthalidone, ACEI
Hold HAND BRAILLE TRANSCRIBER metformin
Observe off additional IV fluids
Hyponatremia
-mild
-monitor
# NIDDM
Hold Jardiance and metformin with CKD status
A1c 6%
Sliding scale insulin coverage
# Hypomagnesemia
#Hypokalemia
Monitor and replete
DVT prophylaxis�on warfarin
CODE STATUS�full code
Anticipated Discharge: Within 24 hours
Subjective/Interval History
-
Date of Service: February 20, 2025
No acute events, has not been on restraints
Objective Data
-
Labs:
Laboratory Results
02/20/25
06:10
WBC 6.7
Hgb 10.7 L
Hct 32.1 L
Plt Count 221
Sodium 136
Potassium 3.9
Chloride 105
Carbon Dioxide 22
BUN 41 H
Creatinine 2.2 H
Glucose 130 H
Calcium 8.5
Total Bilirubin 0.7
AST 32
ALT 30
Alkaline Phosphatase 106
Vital Signs:
Vital Signs
Temp Pulse Resp BP Pulse Ox
97.6 F 72 16 132/75 99
02/20/25 11:00 02/20/25 11:00 02/20/25 11:00 02/20/25 11:00 02/20/25 11:00
I&O
02/19/25 02/20/25 02/21/25
06:59 06:59 06:59
Intake Total 500 / 500 800 / 800
Output Total 600 / 600 780 / 780
Balance -100 / -100 20 / 20
Review of Systems
-
History Source: Patient
All other systems: Not reviewed unless documented
Data Reviewed
-
CT Scan: Report Reviewed by me
Labs: Labs Reviewed by me
[2025-02-20 15:00] VITALS: BP 124/68
--- NOTE | 2025-02-20 15:02 | CM ---
CM reviewed chart, patient off 1:1 as of this morning. CM reviewed with liaisonCristine, at [facility], can accept patient tomorrow pending no behaviors, off 1:1. Patients , Mine, updated. Update to Nursing and Hospitalist. Patient will
require ambulance transport.
Plan; discharge to [facility] tomorrow, patient off 1:1, will require ambulance transport
[2025-02-20 16:57] LABS: Glucose - Point of Care 202 mg/dl (70-99)
[2025-02-20] MEDS: COUMADIN 3 MG PO (17:05)
[2025-02-20] MEDS: NOVOLOG FLEXPEN-LOW RESISTANCE 2 UNITS SC (17:07)
[2025-02-20] MEDS: TYLENOL 650 MG PO (19:30)
[2025-02-20 19:38] VITALS: BP 153/88
[2025-02-20 20:45] LABS: Glucose - Point of Care 142 mg/dl (70-99)
[2025-02-20] MEDS: RISPERDAL 0.5 MG PO (21:00)
[2025-02-20] MEDS: HALDOL 1 MG IV (21:00)
[2025-02-21 00:09] VITALS: BP 116/64
[2025-02-21 06:00] LABS: Hematocrit 32.3 % (39.0-52.0); Hemoglobin 10.5 g/dL (13.0-18.0); Mean Corp Hgb Conc. 32.5 g/dL (33.0-37.0); Mean Corpuscular Volume 83.0 fL (80.0-94.0); Platelet Count 218 10^3/uL (130-400); Red Cell Dist. Width 14.2 % (11.5-14.5)
[2025-02-21 06:21] LABS: ALT (SGPT) 29 U/L (0-50); AST (SGOT) 25 U/L (17-59); Albumin 3.1 g/dl (3.5-5.0); Alkaline Phosphatase 98 U/L (38-126); Blood Urea Nitrogen 36 mg/dl (9-20); Calcium 8.8 mg/dl (8.4-10.2); Carbon Dioxide 26 mmol/L (22-30); Chloride 104 mmol/L (98-107); Estimated Creatinine Clearance 26 ml/min; Glucose 136 mg/dl (70-99); Potassium 3.7 mmol/L (3.5-5.1); Sodium 136 mmol/L (135-145); Total Protein 5.8 g/dl (6.3-8.2); eGFR 30.85
[2025-02-21 07:29] VITALS: BP 118/84; BP 156/94; BP 96/62; PULSE 91; PULSE 92; PULSE 95
[2025-02-21 08:01] LABS: Glucose - Point of Care 199 mg/dl (70-99)
[2025-02-21] MEDS: VITAMIN B-12 1000 MCG PO (08:43)
[2025-02-21] MEDS: CARDIZEM CD 360 MG PO (08:43)
[2025-02-21] MEDS: PROTONIX 40 MG PO (08:43)
[2025-02-21] MEDS: PACERONE 400 MG PO (08:43)
[2025-02-21] MEDS: NOVOLOG FLEXPEN-LOW RESISTANCE 1 UNITS SC (08:45)
[2025-02-21] MEDS: TIMOPTIC 0.5% OPHTHALMIC SOLUTION 1 DROP OPHTH (08:45)
--- NOTE | 2025-02-21 11:18 | W.PN.HOSP.TC ---
Today's Communication/Plan
-
Discharge to SNF
Assessment / Plan
Assessment / Plan
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
and facial droop that lasted for about 30 minutes and now resolved (NIHSS equals 0).
He was found to be in A-fib with RVR in the emergency department. Patient is chronically on anticoagulation with Coumadin for atrial fibrillation.
He appeared to have had some recent weakness from dehydration and Jardiance was discontinued.
He is currently in the middle of see new PMD and usability engineer at [facility]. He reports compliance with his medications.
#Resolved neurologic deficit
2/2 CVA vs TIA in setting of atrial fibrillation with subtherapeutic anticoagulation on admission
Admission CT head No acute intracranial abnormalities appreciated.
Follow up MRI brain also negative for stroke
Neuro on board
Of note, LDL 28, A1c 6%
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
#Hypokalemia
-monitor and replete
#acute metabolic encephalopathy/ Agitation with behavioral disturbance, likely due to dementia (although not formally diagnosed previously) + Delirium; waxing and waning
No formal diagnosis of dementia per , however has noticed that pt has become more forgetful
repeat CT head and MRI brain without acute infarct.
Restarted diet Pureed, SPL - Pureed diet
Continue Seroquel BID -25 mg in AM; 37.5 PM;, Haldol PRN - monitor QTc now that on seroquel
Avoid benzodiazepines
Neuro evaluated
#Persistent A-fib with RVR
Cont STAFF FORESTER warfarin reduce to 3 mg daily
daily INR, goal 2-3
s/p Cardizem drip
Off STAFF FORESTER flecainide (indefinitely) and atenolol per card
Increase Diltiazem XL to 360
Cont Dilt 60mg TID PRN
Continue amiodarone: Amiodarone 400mg bid for 2 weeks (to end 03/02), then 200mg daily (Monitor QTc as alrady on Seroquel prior to Initiation)
follow-up scheduled with [facility] next
Echo unrevealing: Normal biventricular size and systolic function without regional wall motion abnormality. Estimated LVEF 50-55%. No significant valve disease. No prior study available for comparison.
Cardiology on board
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
Monitor
Per , last SCr from December 2024 was at 2.25; SCr from Aug 2024 was at 1.81
Hold STAFF FORESTER chlorthalidone, ACEI
Hold STAFF FORESTER metformin, will discontinue due to renal function
Renal function stable
#Hyponatremia
-mild
-monitor
# NIDDM
Hold Jardiance and metformin with CKD status
A1c 6%
Sliding scale insulin coverage
Will resume Jardiance at discharge as evidence shows reduction of CKD progression with SGLT2i
Will hold off on metformin and transition to insulin aspart ISS as needed
#Hypomagnesemia
#Hypokalemia
Monitor and replete
DVT prophylaxis�on warfarin
CODE STATUS�full code
Anticipated Discharge: Today
Subjective/Interval History
-
Date of Service: February 21, 2025
Seen and examined at the bedside. No acute events reported overnight. AFVSS this morning
Patient states feels well denies new complaints. Hold appropriate conversation, states he feels much better than when he came in
Labs stable today
Objective Data
-
Labs:
Laboratory Results
02/21/25
05:09
WBC 6.7
Hgb 10.5 L
Hct 32.3 L
Plt Count 218
Sodium 136
Potassium 3.7
Chloride 104
Carbon Dioxide 26
BUN 36 H
Creatinine 2.1 H
Glucose 136 H
Calcium 8.8
Total Bilirubin 0.6
AST 25
ALT 29
Alkaline Phosphatase 98
Vital Signs:
Vital Signs
Temp Pulse Resp BP Pulse Ox
97.5 F 95 18 156/94 98
02/21/25 07:29 02/21/25 07:29 02/21/25 07:29 02/21/25 07:29 02/21/25 08:00
I&O
02/20/25 02/21/25 02/22/25
06:59 06:59 06:59
Intake Total 800 / 800 680 / 680
Output Total 780 / 780 890 / 890
Balance 20 -210 / -210
Review of Systems
-
History Source: Patient
All other systems: Reviewed and negative
Physical Exam
-
General: Well Developed, Well Nourished and No Apparent Distress
HEENT: Normocephalic, Atraumatic and Moist Mucous Membranes
Respiratory: Clear to Auscultation and Non Labored Respirations; Negative Accessory Resp Muscle Use
Cardiac: Regular Rhythm and S1/S2; Negative Murmur, Rub or Gallop
GI: Soft, Nontender, Nondistended and Normal Bowel Sounds
Musculoskeletal: No Clubbing, No Cyanosis and No Edema
Skin: Warm and Dry; Negative Rash
Neuro: AO x 3, Nonfocal/Grossly Intact and Central Nerve's Intact; Negative Tremors
Psych: Calm
Data Reviewed
-
Labs: Labs Reviewed by me and Discussed with Patient
[2025-02-21 11:39] LABS: Glucose - Point of Care 137 mg/dl (70-99)
[2025-02-21] MEDS: NOVOLOG FLEXPEN-LOW RESISTANCE SC (11:40)
--- NOTE | 2025-02-21 12:09 | CM ---
Chart reviewed. Patient will d/c to [facility] today. Per nurse patient has not presented any behaviors since restraints were discontinued.
Confirmed / [facility] admissions that patient can admit today. Confirmed auth information was received
Ambulance transport scheduled for 1 pm
Updated patient bedside, agreeable to d/c today
IMM verbally reviewed, copy provided, copy on chart
[facility]
Report: [phone]

Plan: D/c to [facility] today
[2025-02-21 13:03] VITALS: BP 111/65
--- NOTE | 2025-02-21 15:22 | W.DCSUMMARY ---
Discharge Summary
Discharge Data
Date of Admission: 02/15/25
Date of Discharge: 02/21/25
Total time spent discharging patient (in min): 36
-
Pending Results: No
Hospital Course
Discharging Physician : Denzel Cain DO
Disposition : SNF
Principal Discharge diagnosis :
Transient ischemic attack
Subtherapeutic INR
Persistent AF with RVR
Acute metabolic encephalopathy (delirium on dementia)
Chronic Discharge diagnosis :
CKD stage III
Solitary right kidney
H/O left renal cancer s/p nephrectomy
Primary hypertension
NIDDM
Hospital Course :
80-year-old male that presented to the hospital with facial droop that was noted by his . Occurred when he was getting up out of bed and accompanied by bilateral weakness in the upper extremities, expressive aphasia. Episode lasted roughly 30
minutes and then resolved while in the ED. Patient reported not feeling well for multiple days, had some dizziness and lightheadedness prior. Initial CT head without contrast showed mild atrophic changes though no acute abnormalities.
Cerebrovascular ultrasound was without any obstructive stenosis higher than 50%. MRI brain without contrast was negative for acute infarct, demonstrated mild periventricular white matter leukoaraiosis in the frontal and parietal lobes and diffuse
cerebral cerebellar volume loss. Repeat CT without contrast was also stable and showed no new findings. Initial INR was subtherapeutic near 1.8, was given higher dose of warfarin to bring INR back to goal of 2-3 for which he remained the rest of
his hospital stay.
For atrial fibrillation, while in the hospital his flecainide was discontinued and he was started on diltiazem XR 360 mg daily with as needed IR dosing of 60 mg for heart rate >130/min. He was also started on amiodarone load of 400 mg twice daily
through 03/02/2025 and recommended to begin 200 mg daily dosing as of 03/03. Recommended to continue warfarin and monitor INR for therapeutic range.
Due to his chronic kidney disease his chlorthalidone, enalapril, metformin were discontinued. Continued his SGLT2 inhibitor is recent evidence shows SGLT2i may slow down the progression of CKD. As metformin was discontinued he was transition to
ISS with Accu-Cheks as well as his home Jardiance for diabetic care.
Consultants:
Cardiology: Suhail Victor MD
Important imaging findings :
CT head without contrast 02/10/2025
IMPRESSION:
1. No acute intracranial abnormalities appreciated.
2. Mild atrophy and mild chronic small vessel change.
Cerebrovascular US 02/10/2025
Right carotid: Eccentric calcified plaque within the bulb. Any stenosis is less than 50% on velocity criteria. Left carotid: Minimal noncalcified plaque within the bulb and proximal ICA. Any stenosis is less than 50% based upon velocity criteria.
Antegrade flow within the vertebral arteries.
MRI brain without contrast 02/11/2025
IMPRESSION:
1. No MRI evidence for acute infarct.
2. Mild periventricular white matter leukoaraiosis in the frontal and parietal lobes.
3. Mild to moderate diffuse cerebral and cerebellar volume loss.
CT head without contrast 02/11/2025
IMPRESSION: Stable. No acute intracranial abnormality noted.
Transthoracic echocardiogram 02/10/2025
CONCLUSIONS: Normal biventricular size and systolic function without regional wall motion abnormality. Estimated LVEF 50-55%. No significant valve disease.
Procedure findings : N/A
Follow-up:
Follow-up with PCP within 1 to 2 weeks of discharge from hospital
Follow-up with car body designer, office visit scheduled for 02/23/2025
Discharge Plan
-
Patient Disposition: [facility]/SNF
Discharge Diagnosis/Procedures: Transient ischemic attack
Persistent AF with RVR
Acute metabolic encephalopathy
Dementia with superimposed delirium
Condition: Fair
Diet: Low Cholesterol and No added salt
Activity: As tolerated
Driving Restrictions: Not until seen by your Dr
Bathing Restrictions: None
Blood Work: BMP, magnesium, CBC in 5 to 7 days after discharge from hospital
Monitor INR to guide warfarin dosing, goal INR 2�3
Others Tests: None
Other Services: PT and OT
Activity Restrictions/Additional Instructions:
Monitor QTc with daily ECG on Amiodarone
-Contact MD if QTc >510 ms
If heart rate becomes bradycardic/lower than diltiazem dose may need decreased
Follow-up with family doctor within 1 to 2 weeks of discharge from hospital
Follow-up with car body designer in office, has appointment scheduled with [facility]
Referrals:
Elias Mcmahon MD [Family Provider]
Additional Discharge Medication Instructions: Start amiodarone 400 mg twice daily through the end of 03/02/2025, then begin 200 mg daily dosing on 03/03/2025
Start diltiazem ER 360 mg daily, can use diltiazem IR 60 mg PRN up to 3 times daily for HR >130/min
Discontinued flecainide
Discontinued home chlorthalidone, enalapril, metformin due to CKD
Start insulin aspart sliding scale at mealtime
Start risperidone 0.5 mg nightly
Prescriptions:
New
atenolol 50 mg tablet
50 mg PO DAILY Qty: 30 0RF
diltiazem HCl 60 mg Tablet
60 mg PO TID PRN (Reason: for heart rate > 130 bpm) Qty: 90 0RF
diltiazem HCl 180 mg Capsule,Extended Release 24hr
360 mg PO DAILY Qty: 30 0RF
warfarin [Jantoven] 3 mg Tablet
3 mg PO QPM Qty: 30 0RF
insulin aspart U-100 100 unit/mL (3 mL) insulin pen
1 sliding scale dose SC AC Qty: 15 0RF
amiodarone [Pacerone] 200 mg Tablet
400 mg PO BID 9 Days Qty: 36 0RF
amiodarone 200 mg tablet
200 mg PO DAILY Qty: 30 0RF
Rx Instructions:
START 03/03/25
cyanocobalamin (vitamin B-12) [Vitamin B-12] 1,000 mcg Tablet
1,000 mcg PO DAILY 30 Days Qty: 30 0RF
risperidone 0.5 mg Tablet
0.5 mg PO HS 30 Days Qty: 30 0RF
Continued
amlodipine 10 mg Tablet
10 mg PO DAILY
omeprazole 20 mg Tablet,Delayed Release (Dr/Ec)
20 mg PO DAILY
Jardiance 25 mg Tablet
25 mg PO DAILY
timolol
1 dose BOTH EYES BID
Discontinued
atenolol-chlorthalidone 50-25 mg Tablet
1 tab PO DAILY
metformin 1,000 mg Tablet
1,000 mg PO BID
warfarin 5 mg Tablet
5 mg PO HS
flecainide 100 mg Tablet
100 mg PO BID
enalapril maleate
20 mg PO HS
Discharge Orders:
Discharge Patient (As Directed); Ordered 02/21/25
Ordered By: Denzel Cain
Care Plan Goals
Care Plan Goals:
Problem: Readiness for enhanced knowledge related to diagnosis and treatment plan
Goal: Understand your diagnosis and treatment plan needs, including medications if applicable.
Instructions: Know your diagnosis, underlying causes and treatment plan options, including medications if applicable. Consult with your health care team to learn about your diagnosis and treatment plan, including medications if applicable.
Discharge Date and Time
Discharge Date/Time: 02/21/25 13:15
Print Language: [id number]
== END 2025-02-21 13:15 | DRG 69 ==
LOC: 4 WEST ACU 13:28
PROVIDERS: Internal Medicine; ADMITTING PHYSICIAN Internal Medicine; ATTENDING PHYSICIAN Internal Medicine; CONSULT PHYSICIAN Psychiatry & Neurology Neurology; EMERGENCY PHYSICIAN Emergency Medicine; FAMILY PHYSICIAN Internal Medicine; OTHER PHYSICIAN Internal Medicine Cardiovascular Disease
DX: G45.9 Transient cerebral ischemic attack, unspecified (principal); G93.41 Metabolic encephalopathy; E87.1 Hypo-osmolality and hyponatremia; I48.19 Other persistent atrial fibrillation; F05 Delirium due to known physiological condition; R47.01 Aphasia; G81.91 Hemiplegia, unspecified affecting right dominant side; F03.90 Unspecified dementia, unspecified severity, without behavioral disturbance, psychotic disturbance, mood disturbance, and anxiety; I13.10 Hypertensive heart and chronic kidney disease without heart failure, with stage 1 through stage 4 chronic kidney disease, or unspecified chronic kidney disease; N18.30 Chronic kidney disease, stage 3 unspecified; Z85.528 Personal history of other malignant neoplasm of kidney; E11.22 Type 2 diabetes mellitus with diabetic chronic kidney disease; R29.810 Facial weakness; Z90.5 Acquired absence of kidney; Z88.0 Allergy status to penicillin; Z79.84 Long term (current) use of oral hypoglycemic drugs; Z79.899 Other long term (current) drug therapy; H53.462 Homonymous bilateral field defects, left side; I16.0 Hypertensive urgency; I95.1 Orthostatic hypotension; K21.9 Gastro-esophageal reflux disease without esophagitis; R29.701 NIHSS score 1; E87.6 Hypokalemia; E83.42 Hypomagnesemia
CPT/HCPCS: 70450; 70551; 80048; 80053; 80061; 81003; 81015; 82607; 82746; 82962; 83036; 83735; 83880; 84443; 85025; 85027; 85610; 85652; 85730; 92526; 92610; 93005; 93306; 93880; 96374; 96376; 97163; 97167; 97530; 97535; 99285; J2358